=== PATIENT | male | born 1940 | race Caucasian/White ===

== ENCOUNTER → 2016-09-17 | Outpatient (CLI) | payer OTHER ==
[2015-10-30 17:10] VITALS: BP 119/66
[2016-09-17 21:28] LABS: BASOPHILS % (AUTO) 0.4 % (0.2-1.0); EOSINOPHILS # (AUTO) 0.2 x10^3/uL (0.0-0.2); EOSINOPHILS % (AUTO) 3.2 % (0.9-2.9); HEMATOCRIT 45.9 % (42.0-54.0); HEMOGLOBIN 15.3 g/dL (13.5-18.0); LYMPHOCYTES # (AUTO) 2.5 X10^3/uL (1.3-2.9); LYMPHOCYTES % (AUTO) 35.2 % (21.0-51.0); MEAN CORPUSCULAR HEMOGLOBIN 31.9 pg (27.0-34.0); MEAN CORPUSCULAR HGB CONC 33.4 g/dL (33.0-35.0); MEAN CORPUSCULAR VOLUME 95.5 fL (80.0-100.0); MEAN PLATELET VOLUME 8.7 fL (7.4-11.0); MONOCYTES # (AUTO) 0.9 x10^3/uL (0.3-0.8); MONOCYTES % (AUTO) 12.4 % (0.0-13.0); NEUTROPHILS # (AUTO) 3.4 x10^3/uL (2.2-4.8); NEUTROPHILS % (AUTO) 48.8 % (42.0-75.0); PLATELET COUNT 227 X10^3/uL (150.0-450.0); RED CELL DISTRIBUTION WIDTH 14.8 % (11.6-16.5); WHITE BLOOD COUNT 7.1 X10^3/uL (3.6-10.0)
[2016-09-17 21:38] LABS: ALANINE AMINOTRANSFERASE 24 Units/L (12-78); ALBUMIN 3.5 g/dL (3.4-5.0); ALKALINE PHOSPHATASE 49 Units/L (46-116); ASPARTATE AMINO TRANSFERASE 19 Units/L (15-37); BLOOD UREA NITROGEN 12 mg/dL (7-18); CALCIUM 8.6 mg/dL (8.5-10.1); CARBON DIOXIDE 26.5 mmol/L (21-32); CHLORIDE 109 mmol/L (98-107); CREATININE 1.28 mg/dL (0.70-1.30); GLUCOSE 90 mg/dL (65-99); SODIUM 144 mmol/L (136-145); TOTAL PROTEIN 6.4 g/dL (6.4-8.2); TSH (3RD GENERATION) 0.922 uIU/mL (0.358-3.74); eGFR BLACK RACES > 60 (>60); eGFR NON BLACK RACES 58 (>60)
== END ==
LOC: LAB 19:34
PROVIDERS: ATTEND Nurse Practitioner Family
DX: E11.9 Type 2 diabetes mellitus without complications (principal); I10 Essential (primary) hypertension; E03.8 Other specified hypothyroidism; E78.4 Other hyperlipidemia; Z79.899 Other long term (current) drug therapy
CPT/HCPCS: 36415; 80053; 84439; 84443; 85025

== ENCOUNTER 2018-01-03 13:28 | Inpatient (IN) ==
--- NOTE | 2018-01-03 15:10 | DR.H&P ---
H&P - History & Physical for Day of: H&P Date: 01/03/18 - Chief Complaint Chief Complaint: sob, dizziness - History of Present Illness History of Present Illness: 77 WM DIRECT ADMIT FROM DR PENN OFFICE WITH CO SOB, 'TIRES EASILY" PT HAS HX OF DVT AND PE. PT HAS BEEN COMPLIANT WITH PO ELIQUIS FOR ANTICOAGULANT THERAPY. PT HAD CTA OF CHEST THIS AM WITH NEW ACUTE PE. PT HAS PMH OF DM, OA, DVT/PE. PT ADMITTED TO ICU FOR IV HEPARIN THERAPY AND TREATMENT AND EVALUATION OF SOB. - Past Medical History Past Medical History: Arthritis, Diabetes, Dyslipidemia, GERD, Hypothyroidism, Kidney Stones Additional Medical History: HX PE, DVT - Past Surgical History Surgical History: Cholecystectomy, Joint Replacement - Family History Family Medical History: Coronary Artery Disease, Heart Failure, Hypertension - Social History Does patient currently use any type of tobacco product: No Have you used tobacco products in the last 12 months: No Type of Tobacco Use: None Does any household member use tobacco: No Alcohol Use: None Drug Use: None - Medications Home Medications: MS No Known Drug Allergy [No Known Drug Allergy] Allergy (Verified 01/14/15 20: 16) - Review of Systems Constitutional: Malaise Eyes: No Symptoms Reported ENT: No Symptoms Reported Respiratory: Shortness of Breath, SOB with Excertion Cardiovascular: No Symptoms Reported Gastrointestinal: No Symptoms Reported Genitourinary: No Symptoms Reported Neurological: Other (DIZZINESS) - Physical Exam Vital Signs: Temperature 98.8 F Pulse Rate [Apical] 80 Respiratory Rate 18 Blood Pressure [Left Arm] 125/66 Blood Pressure [Right Arm] 119/66 Blood Pressure 119/66 O2 Sat by Pulse Oximetry 96 Oriented: Normal Eyes: Normal Ear: Normal Nose: Normal Throat: Normal Respiratory: RLL Diminished, LLL Diminished Cardiovascular: Normal, Edema : Normal Palpation: Normal Tenderness: Normal Skin: Normal Musculoskeletal: Back:Lumbar Mood Description: Calm Affect: Anxious Speech Pattern: Clear, Appropriate - Assessment/Plan (1) Pulmonary embolism Status: Acute Plan: ADMIT ICU, IV HEPARIN DRIP PER PROTOCOL. ADMISSION LABS, CBC CMP CE AND UA. CXRQ AM, RESP CONSULT, EKG, CONTINUOUS CARDIAC MONITORING. BP CONTROL, AM LIPID LEVELS, BS CONTROL. US EXTREMITIES, HYPER COAG PANEL (2) Diabetes Status: Chronic (3) Neuropathy Status: Chronic (4) HTN (hypertension) Status: Chronic (5) Hypothyroidism Status: Chronic (6) Dizziness of unknown cause Status: Acute Plan: CAROTID ARTERY US. CT HEAD - Allergies Allergies/Adverse Reactions: Allergies Allergy/AdvReac Type Severity Reaction Status Date / Time MS No Known Drug Allergy Allergy Verified 01/14/15 20:16 [No Known Drug Allergy]
[2018-01-03 15:26] LABS: BASOPHILS % (AUTO) 0.4 % (0.2-1.0); EOSINOPHILS # (AUTO) 0.4 x10^3/uL (0.0-0.2); EOSINOPHILS % (AUTO) 5.2 % (0.9-2.9); HEMATOCRIT 44.9 % (42.0-54.0); HEMOGLOBIN 15.5 g/dL (13.5-18.0); LYMPHOCYTES # (AUTO) 2.4 X10^3/uL (1.3-2.9); LYMPHOCYTES % (AUTO) 34.1 % (21.0-51.0); MEAN CORPUSCULAR HEMOGLOBIN 33.5 pg (27.0-34.0); MEAN CORPUSCULAR HGB CONC 34.6 g/dL (33.0-35.0); MEAN CORPUSCULAR VOLUME 96.8 fL (80.0-100.0); MEAN PLATELET VOLUME 7.8 fL (7.4-11.0); MONOCYTES # (AUTO) 0.8 x10^3/uL (0.3-0.8); MONOCYTES % (AUTO) 11.5 % (0.0-13.0); NEUTROPHILS # (AUTO) 3.5 x10^3/uL (2.2-4.8); NEUTROPHILS % (AUTO) 48.8 % (42.0-75.0); PLATELET COUNT 268 X10^3/uL (150.0-450.0); RED BLOOD COUNT 4.63 X10^6/uL (4.7-6.0); RED CELL DISTRIBUTION WIDTH 14.1 % (11.6-16.5); WHITE BLOOD COUNT 7.2 X10^3/uL (3.6-10.0)
[2018-01-03 15:36] LABS: ALANINE AMINOTRANSFERASE 25 Units/L (12-78); ALBUMIN 3.4 g/dL (3.4-5.0); ALKALINE PHOSPHATASE 53 Units/L (46-116); ASPARTATE AMINO TRANSFERASE 16 Units/L (15-37); BLOOD UREA NITROGEN 18 mg/dL (7-18); CALCIUM 8.9 mg/dL (8.5-10.1); CHLORIDE 106 mmol/L (98-107); COR NA(FOR HYPERGLY) 143 mmol/L (136-145); CREATININE 1.41 mg/dL (0.70-1.30); MAGNESIUM 1.9 mg/dL (1.7-2.9); SODIUM 143 mmol/L (136-145); TOTAL PROTEIN 6.9 g/dL (6.4-8.2); eGFR NON BLACK RACES 52 (>60)
[2018-01-03] MEDS ORDERED: HEPARIN SODIUM INJ 5000 UNITS ONE (15:44)
[2018-01-03 15:46] LABS: CREATINE KINASE 89 Units/L (39-308); TROPONIN I < 0.02 ng/mL (0-1.5)
[2018-01-03] MEDS ORDERED: HEPARIN SODIUM INJ 5000 UNITS IVP ONE (16:00)
[2018-01-03 16:08] LABS: CKMB % 2.3 % (<4)
[2018-01-03 16:28] LABS: ERYTHROCYTE SEDIMENTATION RATE 17 MM/HOUR (0-15)
[2018-01-03] MEDS: HEPARIN SODIUM IN D5W 25,000 UNITS/500 ML BAG IV PRN (16:28)
--- NOTE | 2018-01-03 16:29 | CT ---
HISTORY: Dizziness and visual changes. Study: CT brain without contrast Comparison: None. Technique: Multiple axial images of the brain were obtained from the skull base to the vertex without administra tion of IV contrast. Dose reduction techniques including Automated Exposure Control (AEC) and adjust ment of mA and kV were utilized. Findings: Age-related cortical atrophy and chronic small vessel ischemic changes. No acute intraparenchymal hem orrhage or mass can be identified. No extra-axial fluid collections are seen. No alteration in the attenuation of the brain parenchyma can be identified to suggest acute or subacute ischemic change. The ventricular system is symmetric and nondilated. The osseous structures appear intact. Moderate m ucosal thickening of the ethmoidal air cells and sphenoid sinuses. Mild mucosal thickening of the fro ntal sinuses. The visualized maxillary sinuses and mastoid air cells are clear. IMPRESSION: 1. No obvious acute intracranial pathology. If clinically concerned for acute ischemia/infarction, MR I brain is more sensitive. 2. Sinus disease as above. Reported By:
--- NOTE | 2018-01-03 16:43 | VAS ---
HISTORY: History of pulmonary embolism Study: Venous Doppler Comparison: None TECHNIQUE: Multiple fernandez scale and color flow Doppler images of the deep venous system were obtained of the bilateral upper extremities FINDINGS: There is normal respiratory phasicity, compression and augmentation of the extremity veins without ev idence of acute DVT. IMPRESSION: 1. Negative for DVT. Reported By:
--- NOTE | 2018-01-03 16:45 | VAS ---
History: History of pulmonary emboli Study: Bilateral deep venous Doppler of the lower extremities Findings: The deep veins of both lower extremities are patent and show normal augmentation and compre ssion. Impression: No evidence for deep venous thrombosis of either lower extremity Reported By:
[2018-01-03 17:05] VITALS: BMI 33.0
[2018-01-03 19:09] LABS: BILIRUBIN,URINE NEGATIVE (NEGATIVE); BLOOD/HEMOGLOBIN,URINE 1+ (NEGATIVE); GLUCOSE, URINE NEGATIVE (NEGATIVE); KETONES,URINE NEGATIVE (NEGATIVE); LEUKOCYTE ESTERASE ,URINE NEGATIVE (NEGATIVE); NITRITES,URINE NEGATIVE (NEGATIVE); PROTEIN,URINE 1+ (NEGATIVE); UROBILINOGEN,URINE NORMAL (NORMAL)
[2018-01-03 19:10] LABS: COLOR,URINE YELLOW (YELLOW)
[2018-01-03 19:11] LABS: APPEARANCE,URINE SLIGHTLY HAZY (CLEAR)
[2018-01-03 19:15] LABS: BACTERIA,URINE NEGATIVE /HPF (NEGATIVE); RBC,URINE 0-2 /HPF (NONE SEEN); SQUAMOUS EPITHELIAL CELL,UR RARE /HPF (NEGATIVE)
[2018-01-03 21:12] LABS: CKMB % 2.2 % (<4); CREATINE KINASE 78 Units/L (39-308); CREATINE KINASE MB 1.7 ng/mL (0-4.0); TROPONIN I < 0.02 ng/mL (0-1.5)
[2018-01-04 04:04] LABS: CKMB % 2.1 % (<4); CREATINE KINASE 75 Units/L (39-308); CREATINE KINASE MB 1.6 ng/mL (0-4.0); TROPONIN I < 0.02 ng/mL (0-1.5)
[2018-01-04 06:27] LABS: BASOPHILS % (AUTO) 0.6 % (0.2-1.0); EOSINOPHILS # (AUTO) 0.5 x10^3/uL (0.0-0.2); EOSINOPHILS % (AUTO) 6.4 % (0.9-2.9); HEMATOCRIT 41.5 % (42.0-54.0); HEMOGLOBIN 14.4 g/dL (13.5-18.0); LYMPHOCYTES # (AUTO) 2.8 X10^3/uL (1.3-2.9); LYMPHOCYTES % (AUTO) 38.1 % (21.0-51.0); MEAN CORPUSCULAR HEMOGLOBIN 33.3 pg (27.0-34.0); MEAN CORPUSCULAR HGB CONC 34.8 g/dL (33.0-35.0); MEAN CORPUSCULAR VOLUME 95.8 fL (80.0-100.0); MONOCYTES # (AUTO) 0.8 x10^3/uL (0.3-0.8); MONOCYTES % (AUTO) 10.9 % (0.0-13.0); NEUTROPHILS # (AUTO) 3.2 x10^3/uL (2.2-4.8); PLATELET COUNT 229 X10^3/uL (150.0-450.0); RED BLOOD COUNT 4.33 X10^6/uL (4.7-6.0); RED CELL DISTRIBUTION WIDTH 14.1 % (11.6-16.5); WHITE BLOOD COUNT 7.3 X10^3/uL (3.6-10.0)
--- NOTE | 2018-01-04 06:51 | RAD ---
HISTORY: Pulmonary emboli, shortness of breath Study: Chest AP portable Comparison: CTA chest 01/03/2018 Findings: The heart is minimally enlarged. No congestive heart failure is noted. The aorta is calcified. The hi la are normal. The lung durbin are clear. IMPRESSION: Minimal cardiomegaly without congestive heart failure Lungs clear Reported By:
[2018-01-04] MEDS ORDERED: HEPARIN SODIUM INJ 5000 UNITS ONE (06:56)
[2018-01-04] MEDS ORDERED: HEPARIN SODIUM INJ 5000 UNITS IVP ONE ×2 (07:05→23:55)
[2018-01-04 07:08] LABS: ALANINE AMINOTRANSFERASE 24 Units/L (12-78); ALBUMIN 3.1 g/dL (3.4-5.0); ALKALINE PHOSPHATASE 44 Units/L (46-116); ASPARTATE AMINO TRANSFERASE 19 Units/L (15-37); BLOOD UREA NITROGEN 17 mg/dL (7-18); CALCIUM 8.7 mg/dL (8.5-10.1); CARBON DIOXIDE 28.5 mmol/L (21-32); CHLORIDE 106 mmol/L (98-107); CHOL/HDL RATIO 4.2 (0.0-5.0); COR CA(FOR HYPOALB) 9.4 mg/dL (8.5-10.1); COR NA(FOR HYPERGLY) 142 mmol/L (136-145); CREATININE 1.38 mg/dL (0.70-1.30); SODIUM 141 mmol/L (136-145); TOTAL PROTEIN 6.3 g/dL (6.4-8.2); eGFR NON BLACK RACES 53 (>60)
[2018-01-04] MEDS ORDERED: WELLBUTRIN IR (PLAIN) PO SCH (09:30)
[2018-01-04] MEDS ORDERED: HumuLIN R SUBCUT PRN (09:40)
[2018-01-04] MEDS: NEURONTIN CAP 100 MG PO SCH ×2 (10:06→20:24)
[2018-01-04] MEDS: MOBIC TAB 15 MG PO SCH (10:06)
[2018-01-04] MEDS: WELLBUTRIN XL 150 MG (DAILY) PO SCH (11:00)
[2018-01-04] MEDS: HEPARIN SODIUM IN D5W 25,000 UNITS/500 ML BAG IV PRN (12:16)
--- NOTE | 2018-01-04 16:18 | PCM.PROG ---
Progress Note - Progress Note for Day of Date of Exam: 01/04/18 - Subjective Subjective: 77 WM ADMISSION ON 01/03 WITH FATIGUE AND INCREASED SOB, NEW FINDING OF PULMONARY EMBOLI. PT IS CURRENTLY ON HEPARIN DRIP PROTOCOL, HYPER ANTI-COAG PANEL COLLECTED ON ADMISSION, RESULTS PENDING. REVIEWED LABS AND DIAGNOSTIC RESULTS WITH PT AND FAMILY CT HEAD WITHOUT ACUTE FINDINGS, EXTREMITY US NEGATIVE. PT DENIES ANY CP TODAY, CONTINUES WITH MILD FATIGUE - Past Medical Family Social History Past Med/Fam/Surg Hx: No changes since H&P Allergies: Allergies No Known Drug Allergies Allergy (Verified 01/04/18 08:46) - Review of Systems ROS: No change since H&P - Vital Signs and I&O's Vital Signs: Temperature 97.7 F Pulse Rate [Apical] 70 Respiratory Rate 15 Blood Pressure [Left Arm] 107/57 Blood Pressure [Right Arm] 119/66 Blood Pressure 119/66 O2 Sat by Pulse Oximetry 99 Intake and Output: Intake & Output 01/02/18 01/03/18 01/04/18 01/05/18 11:59 11:59 11:59 11:59 Intake Total 700 / 700 1666 / 1666 Output Total 200 / 200 Balance 700 / 700 1466 / 1466 - Physical Exam Oriented: Normal Eyes: Normal Ear: Normal Nose: Normal Throat: Normal Respiratory: Diminished Cardiovascular: Normal, Murmur, Edema : Normal Tenderness: Normal Skin: Normal Musculoskeletal: Back:Lumbar Mood Description: Calm Affect: Anxious Speech Pattern: Clear, Appropriate - Laboratory and Diagnostics Result Diagrams: 01/04/18 06:00 01/04/18 06:00 Labs: Laboratory WBC 7.3 X10^3/uL (3.6-10.0) 01/04/18 06:00 RBC 4.33 X10^6/uL (4.7-6.0) L 01/04/18 06:00 Hgb 14.4 g/dL (13.5-18.0) 01/04/18 06:00 Hct 41.5 % (42.0-54.0) L 01/04/18 06:00 MCV 95.8 fL (80.0-100.0) 01/04/18 06:00 MCH 33.3 pg (27.0-34.0) 01/04/18 06:00 MCHC 34.8 g/dL (33.0-35.0) 01/04/18 06:00 RDW 14.1 % (11.6-16.5) 01/04/18 06:00 Plt Count 229 X10^3/uL (150.0-450.0) 01/04/18 06:00 MPV 8.0 fL (7.4-11.0) 01/04/18 06:00 Neut % (Auto) 44.0 % (42.0-75.0) 01/04/18 06:00 Lymph % (Auto) 38.1 % (21.0-51.0) 01/04/18 06:00 [place] % (Auto) 10.9 % (0.0-13.0) 01/04/18 06:00 Eos % (Auto) 6.4 % (0.9-2.9) H 01/04/18 06:00 Baso % (Auto) 0.6 % (0.2-1.0) 01/04/18 06:00 Neut # (Auto) 3.2 x10^3/uL (2.2-4.8) 01/04/18 06:00 Lymph # (Auto) 2.8 X10^3/uL (1.3-2.9) 01/04/18 06:00 [place] # (Auto) 0.8 x10^3/uL (0.3-0.8) 01/04/18 06:00 Eos # (Auto) 0.5 x10^3/uL (0.0-0.2) H 01/04/18 06:00 Baso # (Auto) 0.0 X10^3/uL (0.0-0.1) 01/04/18 06:00 Absolute Nucleated RBC 0.1 /100WBC 01/04/18 06:00 ESR 17 MM/HOUR (0-15) H 01/03/18 14:52 INR Target Range - 01/03/18 14:52 INR 0.98 (0.8-1.3) 01/03/18 14:52 APTT 120.0 SECONDS (22.9-36.5) H 01/04/18 11:03 PTT Comment - 01/04/18 11:03 Sodium 141 mmol/L (136-145) 01/04/18 06:00 Corrected Sodium 142 mmol/L (136-145) 01/04/18 06:00 Potassium 4.5 mmol/L (3.5-5.1) 01/04/18 06:00 Chloride 106 mmol/L (98-107) 01/04/18 06:00 Carbon Dioxide 28.5 mmol/L (21-32) 01/04/18 06:00 BUN 17 mg/dL (7-18) 01/04/18 06:00 Creatinine 1.38 mg/dL (0.70-1.30) H 01/04/18 06:00 Est GFR (MDRD) Af Amer > 60 (>60) 01/04/18 06:00 Est GFR (MDRD) Non-Af 53 (>60) L 01/04/18 06:00 Glucose 129 mg/dL (65-99) H 01/04/18 06:00 POC Glucose (mg/dL) 107 mg/dL (65-99) H 01/04/18 11:06 Calcium 8.7 mg/dL (8.5-10.1) 01/04/18 06:00 Corrected Calcium 9.4 mg/dL (8.5-10.1) 01/04/18 06:00 Magnesium 1.9 mg/dL (1.7-2.9) 01/03/18 14:52 Total Bilirubin 0.20 mg/dL (0.2-1.0) 01/04/18 06:00 AST 19 Units/L (15-37) 01/04/18 06:00 ALT 24 Units/L (12-78) 01/04/18 06:00 Alkaline Phosphatase 44 Units/L (46-116) L 01/04/18 06:00 Creatine Kinase 75 Units/L (39-308) 01/04/18 03:31 CK-MB (CK-2) 1.6 ng/mL (0-4.0) 01/04/18 03:31 CK/CKMB % Calc 2.1 % (<4) 01/04/18 03:31 Troponin I < 0.02 ng/mL (0-1.5) 01/04/18 03:31 C-Reactive Protein 6.20 mg/L (0-3.0) H 01/03/18 14:52 Total Protein 6.3 g/dL (6.4-8.2) L 01/04/18 06:00 Albumin 3.1 g/dL (3.4-5.0) L 01/04/18 06:00 Globulin 3.2 g/dL (2.5-4.5) 01/04/18 06:00 Albumin/Globulin Ratio 1.0 Ratio (1.1-2.1) L 01/04/18 06:00 Triglycerides 108 mg/dL (0-150) 01/04/18 06:00 Cholesterol 198 mg/dL (0-200) 01/04/18 06:00 LDL Cholesterol, Calc 129 mg/dL (0-100) H 01/04/18 06:00 HDL Cholesterol 47 mg/dL (40-60) 01/04/18 06:00 Cholesterol/HDL Ratio 4.2 (0.0-5.0) 01/04/18 06:00 Specimen Type Random urine 01/03/18 18:41 Urine Color Yellow (YELLOW) 01/03/18 18:41 Urine Appearance Slightly hazy (CLEAR) 01/03/18 18:41 Urine pH 7.0 (5.0 - 8.0) 01/03/18 18:41 Ur Specific [place] 1.015 (1.000-1.030) 01/03/18 18:41 Urine Protein 1+ (NEGATIVE) 01/03/18 18:41 Urine Glucose (UA) Negative (NEGATIVE) 01/03/18 18:41 Urine Ketones Negative (NEGATIVE) 01/03/18 18:41 Urine Occult Blood 1+ (NEGATIVE) 01/03/18 18:41 Urine Nitrite Negative (NEGATIVE) 01/03/18 18:41 Urine Bilirubin Negative (NEGATIVE) 01/03/18 18:41 Urine Urobilinogen Normal (NORMAL) 01/03/18 18:41 Ur Leukocyte Esterase Negative (NEGATIVE) 01/03/18 18:41 Urine RBC 0-2 /HPF (NONE SEEN) 01/03/18 18:41 Urine WBC 0-2 /HPF (NONE SEEN) 01/03/18 18:41 Ur Squamous Epith Cells Rare /HPF (NEGATIVE) 01/03/18 18:41 Urine Bacteria Negative /HPF (NEGATIVE) 01/03/18 18:41 Ur Culture Indicated? No/not indicated 01/03/18 18:41 - Plan (1) Pulmonary embolism Status: Acute Plan: IV HEPARIN DRIP PER PROTOCOL. AM LABS, CBC CMP CE AND UA. CXR Q AM, RESP CARE PRN, EKG, CONTINUOUS CARDIAC MONITORING. BP CONTROL, AM LIPID LEVELS , BS CONTROL. US EXTREMITIES, HYPER COAG PANEL (2) Diabetes Status: Chronic (3) Neuropathy Status: Chronic (4) HTN (hypertension) Status: Chronic (5) Hypothyroidism Status: Chronic (6) Dizziness of unknown cause Status: Acute Plan: CAROTID ARTERY US. CT HEAD
[2018-01-04] MEDS: SYNTHROID 100 mcg TAB PO SCH (16:47)
[2018-01-04] MEDS: SNACK - Diabetic Appropriate PO SCH (20:22)
[2018-01-05 06:30] LABS: BASOPHILS % (AUTO) 0.3 % (0.2-1.0); EOSINOPHILS # (AUTO) 0.4 x10^3/uL (0.0-0.2); EOSINOPHILS % (AUTO) 5.9 % (0.9-2.9); HEMATOCRIT 42.5 % (42.0-54.0); HEMOGLOBIN 14.8 g/dL (13.5-18.0); LYMPHOCYTES # (AUTO) 2.4 X10^3/uL (1.3-2.9); LYMPHOCYTES % (AUTO) 35.4 % (21.0-51.0); MEAN CORPUSCULAR HEMOGLOBIN 33.5 pg (27.0-34.0); MEAN CORPUSCULAR HGB CONC 34.9 g/dL (33.0-35.0); MEAN CORPUSCULAR VOLUME 96.2 fL (80.0-100.0); MEAN PLATELET VOLUME 7.7 fL (7.4-11.0); MONOCYTES # (AUTO) 0.7 x10^3/uL (0.3-0.8); MONOCYTES % (AUTO) 10.4 % (0.0-13.0); NEUTROPHILS # (AUTO) 3.2 x10^3/uL (2.2-4.8); PLATELET COUNT 256 X10^3/uL (150.0-450.0); RED BLOOD COUNT 4.42 X10^6/uL (4.7-6.0); WHITE BLOOD COUNT 6.7 X10^3/uL (3.6-10.0)
[2018-01-05 07:03] LABS: ALANINE AMINOTRANSFERASE 24 Units/L (12-78); ALBUMIN 3.2 g/dL (3.4-5.0); ALKALINE PHOSPHATASE 46 Units/L (46-116); ASPARTATE AMINO TRANSFERASE 18 Units/L (15-37); BLOOD UREA NITROGEN 14 mg/dL (7-18); CALCIUM 8.6 mg/dL (8.5-10.1); CARBON DIOXIDE 29.4 mmol/L (21-32); CHLORIDE 105 mmol/L (98-107); COR CA(FOR HYPOALB) 9.2 mg/dL (8.5-10.1); COR NA(FOR HYPERGLY) 140 mmol/L (136-145); SODIUM 139 mmol/L (136-145); TOTAL PROTEIN 6.4 g/dL (6.4-8.2); eGFR NON BLACK RACES 52 (>60)
[2018-01-05] MEDS: MOBIC TAB 15 MG PO SCH (08:59)
[2018-01-05] MEDS: NEURONTIN CAP 100 MG PO SCH ×2 (08:59→20:12)
[2018-01-05] MEDS: WELLBUTRIN XL 150 MG (DAILY) PO SCH (09:00)
[2018-01-05] MEDS ORDERED: PHARMACY CONSULT - DOSE _____ XX SCH (10:00)
[2018-01-05] MEDS ORDERED: GLUCOPHAGE ONE ×2 (11:53→16:53)
[2018-01-05] MEDS: GLUCOPHAGE PO SCH ×2 (12:00→17:00)
[2018-01-05] MEDS: LOVENOX INJ 100 MG SYR SC SCH ×2 (12:34→20:13)
[2018-01-05] MEDS: SYNTHROID 100 mcg TAB PO SCH (16:44)
[2018-01-05] MEDS ORDERED: MAGNESIUM SULFATE 1 GRAM/100 mL PREMIX 1 GM/100 ML BAG IV PRN (19:02)
[2018-01-05] MEDS ORDERED: POTASSIUM CHLORIDE LIQ 20 MEQ UDC PO PRN (19:02)
[2018-01-05] MEDS ORDERED: K-RIDER 10 MEQ/NS 100 ML 10 MEQ/100 ML BAG IV PRN (19:02)
[2018-01-05] MEDS ORDERED: POTASSIUM CHL 40 MEQ/NS 0.45% 500 ML IV PRN (19:02)
[2018-01-05] MEDS ORDERED: POTASSIUM CHL 60 MEQ/NS 0.45% 500 ML IV PRN (19:02)
[2018-01-05] MEDS ORDERED: K-LYTE EFFERVESCENT PO PRN (19:02)
[2018-01-05] MEDS: SNACK - Diabetic Appropriate PO SCH (20:12)
[2018-01-06 06:22] LABS: BASOPHILS % (AUTO) 0.4 % (0.2-1.0); EOSINOPHILS # (AUTO) 0.4 x10^3/uL (0.0-0.2); EOSINOPHILS % (AUTO) 6.4 % (0.9-2.9); HEMATOCRIT 41.7 % (42.0-54.0); HEMOGLOBIN 14.3 g/dL (13.5-18.0); LYMPHOCYTES # (AUTO) 2.5 X10^3/uL (1.3-2.9); LYMPHOCYTES % (AUTO) 36.3 % (21.0-51.0); MEAN CORPUSCULAR HEMOGLOBIN 33.3 pg (27.0-34.0); MEAN CORPUSCULAR HGB CONC 34.4 g/dL (33.0-35.0); MEAN PLATELET VOLUME 7.9 fL (7.4-11.0); MONOCYTES # (AUTO) 0.7 x10^3/uL (0.3-0.8); MONOCYTES % (AUTO) 10.5 % (0.0-13.0); NEUTROPHILS # (AUTO) 3.2 x10^3/uL (2.2-4.8); NEUTROPHILS % (AUTO) 46.4 % (42.0-75.0); PLATELET COUNT 227 X10^3/uL (150.0-450.0); RED CELL DISTRIBUTION WIDTH 14.3 % (11.6-16.5)
[2018-01-06 06:36] LABS: CALCIUM 8.3 mg/dL (8.5-10.1); CARBON DIOXIDE 27.3 mmol/L (21-32); COR CA(FOR HYPOALB) 9.1 mg/dL (8.5-10.1); CREATININE 1.51 mg/dL (0.70-1.30); TOTAL PROTEIN 6.4 g/dL (6.4-8.2)
[2018-01-06] MEDS ORDERED: GLUCOPHAGE ONE (07:05)
[2018-01-06] MEDS: GLUCOPHAGE PO SCH (07:13)
[2018-01-06] MEDS: LOVENOX INJ 100 MG SYR SC SCH (08:41)
[2018-01-06] MEDS: WELLBUTRIN XL 150 MG (DAILY) PO SCH (08:41)
[2018-01-06] MEDS: NEURONTIN CAP 100 MG PO SCH (08:42)
[2018-01-06] MEDS: MOBIC TAB 15 MG PO SCH (08:42)
[2018-01-06] MEDS ORDERED: MILK OF MAGNESIA PO SCH (09:00)
[2018-01-06 09:35] LABS: ABG ALLEN TEST POS; ABG BASE EXCESS 3.5 mmol/L (-2.0-2.0); ABG HCO3 28.5 mmol/L (22-26)
[2018-01-06 14:30] VITALS: BP 117/65
[2018-01-06] MEDS ORDERED: COLACE CAP 100 MG PO SCH (21:00)
[2018-01-06 21:42] LABS: ANTI-NUCLEAR ANTIBODY TEST None Detected (None Detected); APC RESISTANCE 4.48 (>=2.00); PROTEIN C ACTIVITY 157 % (83-168); PROTHROMBIN G20210A Negative
[2018-01-07 09:26] LABS: ANTITHROMBIN III ACTIVITY 81 % (76-128)
== END 2018-01-06 13:30 | disposition home or self-care (01) | DRG 176 ==
LOC: ICU 14:11
PROVIDERS: ADMIT Internal Medicine; ATTEND Internal Medicine
DX: R42 Dizziness and giddiness; I25.10 Atherosclerotic heart disease of native coronary artery without angina pectoris; E78.2 Mixed hyperlipidemia; I26.99 Other pulmonary embolism without acute cor pulmonale; R06.02 Shortness of breath; Z79.01 Long term (current) use of anticoagulants; R79.1 Abnormal coagulation profile; K21.9 Gastro-esophageal reflux disease without esophagitis; Z86.711 Personal history of pulmonary embolism; E03.8 Other specified hypothyroidism; G62.89 Other specified polyneuropathies; E11.65 Type 2 diabetes mellitus with hyperglycemia
CPT/HCPCS: 36415; 36600; 70450; 71010; 71045; 80053; 80061; 81001; 81240; 82378; 82550; 82553; 82615; 82803; 83090; 83735; 84484; 85025; 85300; 85303; 85305; 85306; 85307; 85597; 85610; 85613; 85635; 85652; 85670; 85730; 85732; 86038; 86140; 86308; 93005; 93010; 93970; A4216; A4222; S0106; J1644; J1650

== ENCOUNTER 2019-09-06 13:55 | Observation (INO) ==
[2019-09-06 15:21] LABS: BASOPHILS # (AUTO) 0.1 X10^3/uL (0.0-0.1); BASOPHILS % (AUTO) 0.7 % (0.2-1.0); EOSINOPHILS # (AUTO) 0.1 x10^3/uL (0.0-0.2); EOSINOPHILS % (AUTO) 1.4 % (0.9-2.9); HEMATOCRIT 47.9 % (42.0-54.0); HEMOGLOBIN 16.5 g/dL (13.5-18.0); LYMPHOCYTES # (AUTO) 2.4 X10^3/uL (1.3-2.9); LYMPHOCYTES % (AUTO) 28.8 % (21.0-51.0); MEAN CORPUSCULAR HEMOGLOBIN 33.4 pg (27.0-34.0); MEAN CORPUSCULAR HGB CONC 34.4 g/dL (33.0-35.0); MEAN CORPUSCULAR VOLUME 97.1 fL (80.0-100.0); MONOCYTES # (AUTO) 0.8 x10^3/uL (0.3-0.8); MONOCYTES % (AUTO) 9.6 % (0.0-13.0); NEUTROPHILS # (AUTO) 4.9 x10^3/uL (2.2-4.8); NEUTROPHILS % (AUTO) 59.5 % (42.0-75.0); PLATELET COUNT 299 X10^3/uL (150.0-450.0); RED BLOOD COUNT 4.94 X10^6/uL (4.7-6.0); RED CELL DISTRIBUTION WIDTH 14.3 % (11.6-16.5); WHITE BLOOD COUNT 8.2 X10^3/uL (3.6-10.0)
[2019-09-06 15:29] LABS: ALANINE AMINOTRANSFERASE 26 Units/L (12-78); ALBUMIN 3.7 g/dL (3.4-5.0); ALKALINE PHOSPHATASE 52 Units/L (46-116); ASPARTATE AMINO TRANSFERASE 17 Units/L (15-37); BLOOD UREA NITROGEN 14 mg/dL (7-18); CALCIUM 9.5 mg/dL (8.5-10.1); CARBON DIOXIDE 32.6 mmol/L (21-32); CHLORIDE 98 mmol/L (98-107); SODIUM 136 mmol/L (136-145); TOTAL PROTEIN 7.2 g/dL (6.4-8.2); eGFR NON BLACK RACES 44 (>60)
[2019-09-06 15:53] LABS: CKMB % 2.8 % (<4); CREATINE KINASE 69 Units/L (39-308); CREATINE KINASE MB 1.9 ng/mL (0-4.0); TROPONIN I < 0.02 ng/mL (0-1.5)
--- NOTE | 2019-09-06 15:53 | DR.H&P ---
H&P - History & Physical for Day of: H&P Date: 09/06/19 - Chief Complaint Chief Complaint: PASSED OUT, DIZZINESS, WEAKNESS - History of Present Illness History of Present Illness: PT IS 78 WM DIRECT ADMIT FROM DR PENN OFFICE WITH CO SYNCOPE ON TUESDAY, WITNESS BY HIS FAMILY. PT WAS SEEN IN ER WITH NEGATIVE HEAD CT. PT FOLLOWED UP WITH DR EKEN AND HAS GRINDER SET UP OPERATOR JIG ON WITH ECHO AND CAROTID ORDERED. PT HAS PMH OF PE, CURRENTLY ON XARELTO. PTS FAMILY REPORTS MR ADAMS HAS BEEN WEAK AND EPISODES OF CONFUSION. PT BP RUNNING LOW AT HOME 90/60'S. PT HAD AORTIC VALVE DYSFUNCTION. PT ADMITTED FOR TREATMENT OF ACUTE ILLNESS - Past Medical History Past Medical History: Arthritis, Diabetes, Dyslipidemia, GERD, Hypothyroidism, Kidney Stones Additional Medical History: HX PE, DVT - Past Surgical History Surgical History: Cholecystectomy, Ortho Surgery - Family History Family Medical History: Diabetes Mellitus, Hypertension - Social History Does patient currently use any type of tobacco product: No Have you used tobacco products in the last 12 months: No Type of Tobacco Use: None Does any household member use tobacco: No Alcohol Use: None Drug Use: None Risks, benefits, and alternatives of opioids discussed: No Prescription drug monitoring program results: PDMP reviewed and no concerns identified - Medications Home Medications: No Known Drug Allergies Allergy (Verified 02/26/19 12:37) - Review of Systems Constitutional: Weakness Eyes: No Symptoms Reported ENT: No Symptoms Reported Respiratory: SOB with Excertion Cardiovascular: Orthopnea, Light Headedness Gastrointestinal: No Symptoms Reported Genitourinary: No Symptoms Reported Musculoskeletal: No Symptoms Reported Neurological: Weakness, Confusion (EPISODES OF CONFUSION PER FAMILY), Other (DIZZINESS) - Physical Exam Vital Signs: Blood Pressure [Left Arm] 132/67 Blood Pressure [Right Arm] 119/66 Blood Pressure 114/71 Oriented: Normal Eyes: Normal Ear: Normal Nose: Normal Throat: Normal Respiratory: RLL Diminished, LLL Diminished Cardiovascular: Murmur : Normal Palpation: Normal Tenderness: Normal Skin: Decreased Turgur Musculoskeletal: Normal Psychiatric: Anxiety Affect: Anxious Speech Pattern: Appropriate, Delayed - Assessment/Plan (1) Syncope Status: Acute Plan: ADMIT, CT HEAD ON ADMISSION. CAROTID ARTERY US, CTA LUNGS R/O PE DUE TO HX OF PE'S. ECHO, CONTINUOUS CARIDAC MONITORING. IV HYDRATION, ADMISSION LABS. STRICT I&OS, BS CONTROL, EKG ON ADMISSION, PRN SUPPLEMENTAL O2. VERIFY HOME MEDICATIONS (2) Aortic valve disease Status: Acute (3) SHELDON (dyspnea on exertion) Status: Acute (4) Diabetes Status: Chronic - Allergies Allergies/Adverse Reactions: Allergies Allergy/AdvReac Type Severity Reaction Status Date / Time No Known Drug Allergies Allergy Verified 02/26/19 12:37
--- NOTE | 2019-09-06 16:37 | RAD ---
HISTORYSOB, SYNCOPESTUDYCHEST x-ray, 1 VIEWCOMPARISONX-ray 09/04/2019FINDINGSThe trachea is midline. The cardiac silhouette is borderline enlarged on this AP radiograph. No pulmonary venous congestion is seen.Lungs appear clear. No pneumothorax or pleural effusion is seen.No acute bony abnormality is seen.IMPRESSIONBorderline cardiomegaly is likely accentuated due to AP technique. No evidence of pneumonia.Electronically signed by: Marcelo Espinal (Sep 06, 2019 16:36:01)
--- NOTE | 2019-09-06 16:43 | CT ---
HISTORYSyncope visual changesSTUDYHead CT noncontrast, Radiation dose reduction was achieved through individualized adjustment of kVP and/or mA, through adaptive statistical iterative reconstruction, and/or through automated tube current modulation.COMPARISONHead CT dated September 04, 2019 an older study of January 03, 2018.FINDINGSThe paranasal sinuses are clear. The orbits are normal. There are no sellar suprasellar masses. There is diffuse cortical atrophy most marked in the frontal region this cortical atrophy is unchanged from the older study of 2018. There are no extra-axial fluid collections or mass lesions. There is no parenchymal hemorrhage edema or mass effect. The ventricular system of the brain is normal for patient's age of 78 years. The brainstem and cerebellum are normal. Vascular calcifications are seen in the vertebral arteries and within the cavernous portion of both internal carotid arteries. On review of bone windows the paranasal sinuses are clear the mastoid air cells middle ear cavities and IAC's are normal. The bony calvarium is normal. Coronal and sagittal reformats are reviewed. No additional findings are noted.IMPRESSIONNo acute intracranial abnormalities. Moderate to marked frontoparietal cortical atrophy which is symmetric and unchanged from the older exam of January 03, 2018. Vascular arterial calcifications are seen in the cavernous portions of the internal carotid arteries and in the vertebral basilar system. Bone details normal with sinuses clear and bony calvarium normal. The sinus disease that was present in the sphenoid and ethmoid air cells previously in 2018 has resolved.Electronically signed by: LB TRAN (Sep 06, 2019 16:42:00)
--- NOTE | 2019-09-06 16:46 | CT ---
HISTORYSOB, SYNCOPE, HX PESTUDYCTA CHEST with IV contrastCOMPARISONCTA 01/03/2018TECHNIQUEMultiple axial images of the chest were obtained from the thoracic inlet to the upper abdomen after the administration of IV contrast. 3D reconstructions utilizing axial MIPS imaging was performed and reviewed. Dose reduction techniques including Automated Exposure Control (AEC) and adjustment of mA and kV were utilized.FINDINGSSubpleural stable nodular density in the right upper lobe measures approximately 5 millimeters. Probable mild scarring or atelectasis in the superior aspect of the right lower lobe and inferior aspect of the right upper lobe, unchanged. Likely mild atelectasis in the left lower lobe, associated with prominent cardiophrenic fat pads.However, there are likely mild increased ground-glass and interstitial densities in the lower lobes, left greater than right. These are very similar to prior study and could be associated with chronic interstitial lung disease. Within the superior aspect of the left lower lobe there is a new nodule that measures 6 millimeters in average axial dimension. A calcified granuloma is seen in the left upper lobe of the lungs. Likely mild bronchial wall thickening in the lower lobes.No pleural effusion or pneumothorax is seen. Heart and thoracic aorta are normal in size. Aorta is not well enhanced to evaluate further. Small likely reactive mediastinal and hilar lymph nodes are similar to prior study. Coronary artery vascular calcifications are seen. No pulmonary embolus is seen.IMPRESSIONNo pulmonary embolus is seen.Stable 5 millimeter right upper lobe lung nodule but there is a new 6 millimeter nodule in the left lower lobe. Short-term follow-up CT in 2-3 months time is recommended for this new nodule.Possible chronic interstitial lung disease changes in the lower lobes, similar to prior study. Possible bronchitis changes. No honeycombing is seen.Electronically signed by: Marcelo Espinal (Sep 06, 2019 16:45:17)
--- NOTE | 2019-09-06 16:48 | VAS ---
HISTORY:Syncope, visual disturbance, dizzinessStudy: Bilateral Carotid UltrasoundComparison:NoneTechnique: Multiple fernandez scale and color flow Doppler images of the right and left carotid arterial system were obtained. The vertebral arterial system was evaluated as well.Findings:Normal color flow Doppler is seen throughout the right and left carotid arterial system. There is calcified plaque present at the bilateral carotid bifurcations. Peak systolic velocity in the right ICA is 116 cm/sec. Peak systolic velocity in the left ICA is 95 cm/sec. The right ICA/CCA ratio is 2.23. The left ICA/CCA ratio is1.08. The right and left vertebral arteries demonstrate antegrade flowIMPRESSION:1. Calcified plaque at the bilateral carotid bifurcations. There is no evidence of significant stenosis by velocity criteria however the right ICA/CCA ratio is mildly elevated at 2.23 (normal less than 2.0) which suggests stenosis in the range of 50-69%. Findings could be further evaluated with CTA of the neck if clinically indicated.2. Normal antegrade flow in the vertebral arteries.3. Normal antegrade flow in the vertebral arteries.Electronically signed by: MARK MISHRA (Sep 06, 2019 16:47:04)
[2019-09-06 17:38] VITALS: BMI 27.6
[2019-09-06] MEDS: SYNTHROID 100 mcg TAB PO SCH (18:08)
[2019-09-06] MEDS: NS 1000 ML 1,000 ML IV SCH (20:00)
[2019-09-07 00:27] LABS: BILIRUBIN,URINE NEGATIVE (NEGATIVE); BLOOD/HEMOGLOBIN,URINE NEGATIVE (NEGATIVE); GLUCOSE, URINE NEGATIVE (NEGATIVE); KETONES,URINE NEGATIVE (NEGATIVE); LEUKOCYTE ESTERASE ,URINE NEGATIVE (NEGATIVE); NITRITES,URINE NEGATIVE (NEGATIVE); PROTEIN,URINE NEGATIVE (NEGATIVE); UROBILINOGEN,URINE NORMAL (NORMAL)
[2019-09-07 00:28] LABS: APPEARANCE,URINE CLEAR (CLEAR); COLOR,URINE YELLOW (YELLOW)
[2019-09-07] MEDS ORDERED: HumuLIN R SUBCUT PRN (04:29)
[2019-09-07 06:59] LABS: BASOPHILS % (AUTO) 0.2 % (0.2-1.0); EOSINOPHILS # (AUTO) 0.1 x10^3/uL (0.0-0.2); EOSINOPHILS % (AUTO) 1.8 % (0.9-2.9); HEMATOCRIT 45.2 % (42.0-54.0); HEMOGLOBIN 15.6 g/dL (13.5-18.0); LYMPHOCYTES # (AUTO) 2.3 X10^3/uL (1.3-2.9); LYMPHOCYTES % (AUTO) 33.1 % (21.0-51.0); MEAN CORPUSCULAR HEMOGLOBIN 33.2 pg (27.0-34.0); MEAN CORPUSCULAR HGB CONC 34.4 g/dL (33.0-35.0); MEAN CORPUSCULAR VOLUME 96.5 fL (80.0-100.0); MEAN PLATELET VOLUME 7.1 fL (7.4-11.0); MONOCYTES # (AUTO) 0.8 x10^3/uL (0.3-0.8); MONOCYTES % (AUTO) 11.4 % (0.0-13.0); NEUTROPHILS # (AUTO) 3.7 x10^3/uL (2.2-4.8); NEUTROPHILS % (AUTO) 53.5 % (42.0-75.0); PLATELET COUNT 264 X10^3/uL (150.0-450.0); RED BLOOD COUNT 4.69 X10^6/uL (4.7-6.0); RED CELL DISTRIBUTION WIDTH 14.7 % (11.6-16.5); WHITE BLOOD COUNT 6.9 X10^3/uL (3.6-10.0)
[2019-09-07 07:15] LABS: ALANINE AMINOTRANSFERASE 24 Units/L (12-78); ALBUMIN 3.3 g/dL (3.4-5.0); ALKALINE PHOSPHATASE 43 Units/L (46-116); ASPARTATE AMINO TRANSFERASE 15 Units/L (15-37); BLOOD UREA NITROGEN 15 mg/dL (7-18); CALCIUM 9.1 mg/dL (8.5-10.1); CARBON DIOXIDE 29.4 mmol/L (21-32); CHLORIDE 101 mmol/L (98-107); COR CA(FOR HYPOALB) 9.7 mg/dL (8.5-10.1); CREATININE 1.51 mg/dL (0.70-1.30); SODIUM 138 mmol/L (136-145); TOTAL PROTEIN 6.5 g/dL (6.4-8.2); eGFR NON BLACK RACES 47 (>60)
[2019-09-07 07:38] LABS: CKMB % 2.8 % (<4); CREATINE KINASE 68 Units/L (39-308); CREATINE KINASE MB 1.9 ng/mL (0-4.0); TROPONIN I < 0.02 ng/mL (0-1.5)
[2019-09-07] MEDS: SYNTHROID 100 mcg TAB PO SCH (08:29)
[2019-09-07] MEDS: NS 1000 ML 1,000 ML IV SCH (11:16)
[2019-09-07 11:36] VITALS: BP 116/64
[2019-09-07] MEDS ORDERED: XARELTO PO SCH (14:00)
[2019-09-07] MEDS ORDERED: SNACK - Diabetic Appropriate PO SCH (20:00)
== END 2019-09-07 14:20 | disposition home or self-care (01) ==
LOC: MED/SURG
PROVIDERS: ADMIT Internal Medicine; ATTEND Internal Medicine
DX: K21.9 Gastro-esophageal reflux disease without esophagitis; R91.8 Other nonspecific abnormal finding of lung field; Z79.899 Other long term (current) drug therapy; R55 Syncope and collapse; R53.1 Weakness; R42 Dizziness and giddiness; R94.4 Abnormal results of kidney function studies; E03.8 Other specified hypothyroidism; R06.09 Other forms of dyspnea; I35.8 Other nonrheumatic aortic valve disorders; E11.65 Type 2 diabetes mellitus with hyperglycemia

== ENCOUNTER 2024-01-14 19:13 | Inpatient (IN) ==
[2024-01-14 19:51] VITALS: BMI 31.1
--- NOTE | 2024-01-14 20:25 | EKG ---
Test Reason : chest pain Blood Pressure : */* mmHG Vent. Rate : 88 BPM Atrial Rate : 88 BPM P-R Int : 214 ms QRS Dur : 72 ms QT Int : 358 ms P-R-T Axes : 35 -41 17 degrees QTc Int : 433 ms Sinus rhythm with 1st degree AV block Left axis deviation Minimal voltage criteria for LVH, may be normal variant ( R in aVL ) Inferior infarct , age undetermined Abnormal ECG When compared with ECG of 04-JUL-2023 17:28, Criteria for Anterior infarct are no longer present No significant change was found Confirmed by Steve Concepcion ([id number]) on 01/16/2024 8:08:27 AM Referred By: Confirmed By: Steve Concepcion
[2024-01-14 20:26] LABS: BASOPHILS # (AUTO) 0.1 X10^3/uL (0.0-0.1); BASOPHILS % (AUTO) 0.8 % (0.2-1.0); EOSINOPHILS # (AUTO) 0.1 x10^3/uL (0.0-0.2); HEMOGLOBIN 13.9 g/dL (13.5-18.0); LYMPHOCYTES # (AUTO) 2.8 X10^3/uL (1.3-2.9); LYMPHOCYTES % (AUTO) 31.2 % (21.0-51.0); MEAN CORPUSCULAR HEMOGLOBIN 33.5 pg (27.0-34.0); MEAN CORPUSCULAR HGB CONC 33.1 g/dL (33.0-35.0); MEAN CORPUSCULAR VOLUME 101.2 fL (80.0-100.0); MEAN PLATELET VOLUME 7.5 fL (7.4-11.0); MONOCYTES # (AUTO) 1.2 x10^3/uL (0.3-0.8); MONOCYTES % (AUTO) 13.4 % (0.0-13.0); NEUTROPHILS # (AUTO) 4.9 x10^3/uL (2.2-4.8); NEUTROPHILS % (AUTO) 53.6 % (42.0-75.0); PLATELET COUNT 230 X10^3/uL (150.0-450.0); RED BLOOD COUNT 4.15 X10^6/uL (4.7-6.0); RED CELL DISTRIBUTION WIDTH 14.2 % (11.6-16.5); WHITE BLOOD COUNT 9.1 X10^3/uL (3.6-10.0)
[2024-01-14 20:44] LABS: ALANINE AMINOTRANSFERASE 15 Units/L (12-78); ALBUMIN 3.2 g/dL (3.4-5.0); ALKALINE PHOSPHATASE 80 Units/L (46-116); ASPARTATE AMINO TRANSFERASE 11 Units/L (15-37); BLOOD UREA NITROGEN 11 mg/dL (7-18); CALCIUM 8.9 mg/dL (8.5-10.1); CARBON DIOXIDE 30.1 mmol/L (21-32); CHLORIDE 100 mmol/L (98-107); COR CA(FOR HYPOALB) 9.5 mg/dL (8.5-10.1); CREATININE 1.51 mg/dL (0.70-1.30); GLUCOSE 100 mg/dL (65-99); POTASSIUM 4.1 mmol/L (3.5-5.1); SODIUM 139 mmol/L (136-145); TOTAL PROTEIN 6.5 g/dL (6.4-8.2); eGFR NON BLACK RACES 47 (>60)
--- NOTE | 2024-01-14 21:00 | DR.CP ---
HPI Time Seen Time Seen by Provider: 01/14/24 21:00 PCP Primary Care Physician: Georgiana Sarah HPI Comment HPI Comment: Patient is 83-year-old male in the emergency room with chest pain that started approximately around 5 PM today. Patient said pain is pressure- like precordial intermittent that is nonradiating. Pain is associated with shortness of breath and fatigue. Patient said pain is getting worse. Complaint Chief Complaint:: Pt complaing of chest pain in the epigastric area that started around 5 p.m this afternoon. He states that the pain feels like someone is putting pressure on him along with tightness, the pain comes and goes. He feels fatigued, and feels like he can't catch his breath. COVID-19 Coronavirus risk:travel/contact w/high risk person: No Has patient experienced Coronavirus symptoms: No Reviewed Nurses Notes Review: Yes Source History Provided: Patient Mode of Arrival Mode of Arrival: Ambulatory Timing Onset of Chief Complaint: 01/14/24 Location Chest Pain Radiation Location: None Associated Signs and Symptoms Associated Signs and Symptoms: Shortness of Breath PMH PMH Past Medical History: Yes Past Medical History: [place] Past Medical History Comment: Blood clots Past Surgical History: Yes Surgical History: Cholecystectomy Family History History of Family Medical Conditions: Yes Family Medical History: Cancer Social History Do you use any recreational Drugs:: No Travel Risk Coronavirus risk:travel/contact w/high risk person: No Has patient experienced Coronavirus symptoms: No Infectious screening Have you traveled outside the country in the last 6 months?: No Isolation: Standard ROS Review of Systems Constitutional: Fatigue; negative Fever Eyes: No Symptoms Reported ENTM: No Symptoms Reported; negative Nose Discharge or Nose Congestion Respiratoy: Short of Breath; negative Moist Cough or Wheezing Cardiovascular: No Symptoms Reported Gastrointestinal/Abdominal: No Symptoms Reported Genitourinary: No Symptoms Reported Neurological: No Symptoms Reported Musculoskeletal: No Symptoms Reported Integumentary: No Symptoms Reported; negative Rash or Juandice Hematologic/Lymphatic: No Symptoms Reported Endocrine: No Symptoms Reported; negative Increased Thirst or Increased Urine Psychiatric: No Symptoms Reported All Other Systems: Reviewed and Negative PE Vitals Vitals: Vital Signs Temperature 98.3 F Pulse Rate 74 Pulse Rate 68 Pulse Rate 72 Pulse Rate 71 Pulse Rate 70 Pulse Rate 75 Pulse Rate 73 Pulse Rate 74 Pulse Rate 73 Pulse Rate 73 Pulse Rate 70 Pulse Rate 72 Pulse Rate 72 Pulse Rate 81 Pulse Rate 71 Pulse Rate 73 Pulse Rate 75 Pulse Rate 71 Pulse Rate 73 Pulse Rate 74 Pulse Rate 72 Pulse Rate 76 Pulse Rate 77 Pulse Rate 76 Pulse Rate 79 Pulse Rate 81 Pulse Rate 82 Pulse Rate 83 Pulse Rate 85 Pulse Rate 88 Respiratory Rate 16 Respiratory Rate 19 Respiratory Rate 19 Respiratory Rate 14 Respiratory Rate 15 Respiratory Rate 12 Respiratory Rate 15 Respiratory Rate 19 Respiratory Rate 8 Respiratory Rate 8 Respiratory Rate 13 Respiratory Rate 13 Respiratory Rate 11 Respiratory Rate 22 Respiratory Rate 16 Respiratory Rate 30 Respiratory Rate 17 Respiratory Rate 14 Respiratory Rate 17 Respiratory Rate 14 Respiratory Rate 11 Respiratory Rate 15 Respiratory Rate 18 Respiratory Rate 19 Respiratory Rate 22 Respiratory Rate 11 Respiratory Rate 18 Respiratory Rate 18 Respiratory Rate 14 Respiratory Rate 14 Respiratory Rate 20 Blood Pressure 135/63 Blood Pressure 130/60 Blood Pressure 136/62 Blood Pressure 138/63 Blood Pressure 134/70 Blood Pressure 133/62 Blood Pressure 155/74 Blood Pressure 137/67 Blood Pressure 129/72 Blood Pressure 126/65 Blood Pressure 126/65 Blood Pressure 120/72 Blood Pressure 137/71 Blood Pressure 137/71 Blood Pressure 140/64 O2 Sat by Pulse Oximetry 99 O2 Sat by Pulse Oximetry 97 O2 Sat by Pulse Oximetry 97 O2 Sat by Pulse Oximetry 97 O2 Sat by Pulse Oximetry 98 O2 Sat by Pulse Oximetry 98 O2 Sat by Pulse Oximetry 98 O2 Sat by Pulse Oximetry 98 O2 Sat by Pulse Oximetry 99 O2 Sat by Pulse Oximetry 100 O2 Sat by Pulse Oximetry 99 O2 Sat by Pulse Oximetry 100 O2 Sat by Pulse Oximetry 100 O2 Sat by Pulse Oximetry 99 O2 Sat by Pulse Oximetry 99 O2 Sat by Pulse Oximetry 100 O2 Sat by Pulse Oximetry 99 O2 Sat by Pulse Oximetry 99 O2 Sat by Pulse Oximetry 99 O2 Sat by Pulse Oximetry 99 O2 Sat by Pulse Oximetry 98 O2 Sat by Pulse Oximetry 98 O2 Sat by Pulse Oximetry 97 O2 Sat by Pulse Oximetry 98 O2 Sat by Pulse Oximetry 97 O2 Sat by Pulse Oximetry 97 O2 Sat by Pulse Oximetry 98 O2 Sat by Pulse Oximetry 97 O2 Sat by Pulse Oximetry 96 O2 Sat by Pulse Oximetry 99 O2 Sat by Pulse Oximetry 99 General Limitations: No Limitations General Appearance: Alert and In No Apparent Distress Head Head Exam: Normal Inspection Eyes Eye exam: Normal Appearance; negative Scleral Icterus or Conjunctival Injection ENT ENT Exam: Normal Exam and Normal Oropharynx Chest Chest Inspection: Normal Inspection and Symmetric Chest Wall Rise; negative Tenderness Cardiovascular Cardiovascular Exam: Regular Rate, Normal Rhythm and Normal Heart Sounds; negative Systolic Murmur or Diastolic Murmur Abdominal Exam Abdominal Exam: Normal Inspection, Normal Bowel Sounds and Soft; negative Tenderness Extremities Extremities Exam: Tenderness, Normal Capillary Refill and Edema Back Back Exam: Normal Inspection; negative (R) CVA Tenderness or (L) CVA Tenderness Neurologic Neurological Exam: Alert and Oriented X3; negative Motor Sensory Deficit MDM Differential Diagnosis Differential Diagnosis: Angina, CHF, Myocardial Infarction, Pericarditis, Pleuritis, Pneumonia and Pneumothorax COURSE Treatment Treatment: See orders done while patient was in the emergency room. Labs EKG and x-ray discussed. Cardiac enzymes and EKG done twice 2 hours apart and was without acute findings. Patient will be admitted to hospital for further management. Consultation Consultation Comments: Discussed patient with Dr. Horta, he will admit patient. Education/Counseling Education/Counseling: Patient Educated On: Diagnosis ROR Labs Reviewed Laboratory Results Reviewed?: Yes 01/14/24 20:11 01/14/24 20:11 Laboratory: WBC 9.1 X10^3/uL (3.6-10.0) 01/14/24 20:11 RBC 4.15 X10^6/uL (4.7-6.0) L 01/14/24 20:11 Hgb 13.9 g/dL (13.5-18.0) 01/14/24 20:11 Hct 42.0 % (42.0-54.0) 01/14/24 20:11 MCV 101.2 fL (80.0-100.0) H 01/14/24 20:11 MCH 33.5 pg (27.0-34.0) 01/14/24 20:11 MCHC 33.1 g/dL (33.0-35.0) 01/14/24 20:11 RDW 14.2 % (11.6-16.5) 01/14/24 20:11 Plt Count 230 X10^3/uL (150.0-450.0) 01/14/24 20:11 MPV 7.5 fL (7.4-11.0) 01/14/24 20:11 Neut % (Auto) 53.6 % (42.0-75.0) 01/14/24 20:11 Lymph % (Auto) 31.2 % (21.0-51.0) 01/14/24 20:11 [place] % (Auto) 13.4 % (0.0-13.0) H 01/14/24 20:11 Eos % (Auto) 1.0 % (0.9-2.9) 01/14/24 20:11 Baso % (Auto) 0.8 % (0.2-1.0) 01/14/24 20:11 Neut # (Auto) 4.9 x10^3/uL (2.2-4.8) H 01/14/24 20:11 Lymph # (Auto) 2.8 X10^3/uL (1.3-2.9) 01/14/24 20:11 [place] # (Auto) 1.2 x10^3/uL (0.3-0.8) H 01/14/24 20:11 Eos # (Auto) 0.1 x10^3/uL (0.0-0.2) 01/14/24 20:11 Baso # (Auto) 0.1 X10^3/uL (0.0-0.1) 01/14/24 20:11 Absolute Nucleated RBC 0.0 /100WBC 01/14/24 20:11 D-Dimer 0.88 ug/ml (0.0-0.57) H 01/14/24 20:11 Sodium 139 mmol/L (136-145) 01/14/24 20:11 Corrected Sodium TNP 01/14/24 20:11 Potassium 4.1 mmol/L (3.5-5.1) 01/14/24 20:11 Chloride 100 mmol/L (98-107) 01/14/24 20:11 Carbon Dioxide 30.1 mmol/L (21-32) 01/14/24 20:11 BUN 11 mg/dL (7-18) 01/14/24 20:11 Creatinine 1.51 mg/dL (0.70-1.30) H 01/14/24 20:11 Est GFR (MDRD) Af Amer 57 (>60) L 01/14/24 20:11 Est GFR (MDRD) Non-Af 47 (>60) L 01/14/24 20:11 Glucose 100 mg/dL (65-99) H 01/14/24 20:11 Calcium 8.9 mg/dL (8.5-10.1) 01/14/24 20:11 Corrected Calcium 9.5 mg/dL (8.5-10.1) 01/14/24 20:11 Total Bilirubin 0.30 mg/dL (0.2-1.0) 01/14/24 20:11 AST 11 Units/L (15-37) L 01/14/24 20:11 ALT 15 Units/L (12-78) 01/14/24 20:11 Alkaline Phosphatase 80 Units/L (46-116) 01/14/24 20:11 Creatine Kinase 79 Units/L (39-308) 01/14/24 22:46 Troponin I High Sens 29.7 ng/L (4.0-60.0) 01/14/24 22:46 Total Protein 6.5 g/dL (6.4-8.2) 01/14/24 20:11 Albumin 3.2 g/dL (3.4-5.0) L 01/14/24 20:11 Globulin 3.3 g/dL (2.5-4.5) 01/14/24 20:11 Albumin/Globulin Ratio 1.0 Ratio (1.1-2.1) L 01/14/24 20:11 XRAY XRAY Interpreted by: Radiologist (Report noted.) EKG Rate: 88 [place]: LAD Rhythm: NSR Block: None and 1 Hypertrophy: LVH ST: Inf (Infarct age undetermined.) Opioid Opioid Risk Tool Age (Elder box if 16-45): No History of Preadolescent Sexual Abuse: No Total: 0 Total Score Risk Category: Low Risk Copyright: Olvin STEARNS predicting aberrant behaviors Discharge Plan Diagnosis Discharge Problem: Chest pain, rule out acute myocardial infarction Discharge Plan Patient Disposition: ADMITTED INPATIENT Condition: Stable
--- NOTE | 2024-01-14 22:34 | RAD ---
EXAM:CHEST, 1 VIEWHISTORY:CHEST PAIN/ PRESSURE SINCE 5PM ; HX- VT, SX- CHOLECYSTECTOMY, STENTS, VALVECOMPARISON:CTA chest from March 17, 2023TECHNIQUE:Chest radiographic imaging, AP portable projection, 2 imagesFINDINGS:No cardiomegaly.No focal airspace disease.No pleural effusion.No pneumothorax.No acute osseous abnormality.IMPRESSION:No imaging findings of acute cardiopulmonary disease.THIS IS AN ELECTRONICALLY VERIFIED FINAL REPORT01/14/2024 10:30 PM - Electronically signed by Tom Snyder MD
--- NOTE | 2024-01-15 01:07 | CT ---
EXAM: CTA CHEST WITH CONTRAST HISTORY: chest pain, elevated d-dimer; hx- diabeties, VT sx- stents, valve, ortho COMPARISON: 03/17/2023 TECHNIQUE: Axial images were acquired of the chest with IV contrast for a CT angiogram. Coronal and sagittal ubaldo ges were provided. All images were reviewed in a variety of windows and levels. 3D 8 mm thick MIPS im ages were provided. RADIATION REDUCTION TECHNIQUE: Automated exposure control, Adjustment of the mA and/or kV according t o patient size, or iterative reconstruction techniques were used. 8 mm thick axial MIPS images were p rovided. FINDINGS: THYROID GLAND: The thyroid gland is unremarkable. HEART AND VESSELS: The heart size is within normal limits. There is no evidence of a pericardial effu patric. The thoracic aorta is normal in size without evidence of aneurysm or dissection. The main pulmo nary artery size is within normal limits. There are no filling defects seen in the visualized pulmona ry arteries to suggest a pulmonary embolism. LYMPHNODES: There is no evidence of axillary, mediastinal, or hilar lymphadenopathy, AIRWAY: The trachea and mainstem bronchi are patent. No intraluminal lesions are seen. LUNGS: The lungs are clear bilaterally. There is no evidence of consolidation, pleural effusion, or p neumothorax. Mild bibasilar linear atelectasis. ESOPHAGUS: The esophagus is grossly unremarkable. BONES: The visualized bones demonstrate degenerative changes. There are no concerning lytic or blasti c lesions identified. UPPER ABDOMINAL STRUCTURES: The visualized portions of the upper abdominal structures demonstrate pos t cholecystectomy changes. IMPRESSION: Negative CT pulmonary angiogram; no evidence of pulmonary embolic disease. No active cardiopulmonary disease. THIS IS AN ELECTRONICALLY VERIFIED FINAL REPORT 01/15/2024 1:04 AM - Electronically signed by Tawanda Guadalupe MD
--- NOTE | 2024-01-15 02:19 | EKG ---
Test Reason : chest pain Blood Pressure : */* mmHG Vent. Rate : 72 BPM Atrial Rate : 72 BPM P-R Int : 208 ms QRS Dur : 74 ms QT Int : 394 ms P-R-T Axes : 53 -38 25 degrees QTc Int : 431 ms Normal sinus rhythm Left axis deviation Nonspecific ST abnormality Abnormal ECG When compared with ECG of 14-JAN-2024 20:22, (Unconfirmed) No significant change was found Confirmed by Albin Tejeda MD ([id number]) on 01/16/2024 6:55:02 AM Referred By: Confirmed By: Albin Tejeda MD
[2024-01-15 05:29] LABS: BASOPHILS % (AUTO) 0.2 % (0.2-1.0); EOSINOPHILS # (AUTO) 0.1 x10^3/uL (0.0-0.2); EOSINOPHILS % (AUTO) 0.9 % (0.9-2.9); HEMATOCRIT 41.3 % (42.0-54.0); HEMOGLOBIN 13.7 g/dL (13.5-18.0); LYMPHOCYTES # (AUTO) 2.5 X10^3/uL (1.3-2.9); LYMPHOCYTES % (AUTO) 29.9 % (21.0-51.0); MEAN CORPUSCULAR HEMOGLOBIN 33.4 pg (27.0-34.0); MEAN CORPUSCULAR HGB CONC 33.1 g/dL (33.0-35.0); MEAN CORPUSCULAR VOLUME 100.8 fL (80.0-100.0); MEAN PLATELET VOLUME 7.5 fL (7.4-11.0); MONOCYTES # (AUTO) 0.9 x10^3/uL (0.3-0.8); NEUTROPHILS # (AUTO) 4.8 x10^3/uL (2.2-4.8); PLATELET COUNT 224 X10^3/uL (150.0-450.0); RED BLOOD COUNT 4.09 X10^6/uL (4.7-6.0); WHITE BLOOD COUNT 8.4 X10^3/uL (3.6-10.0)
[2024-01-15 05:49] LABS: ALANINE AMINOTRANSFERASE 18 Units/L (12-78); ALKALINE PHOSPHATASE 77 Units/L (46-116); ASPARTATE AMINO TRANSFERASE 16 Units/L (15-37); BLOOD UREA NITROGEN 10 mg/dL (7-18); CALCIUM 8.9 mg/dL (8.5-10.1); CARBON DIOXIDE 31.9 mmol/L (21-32); CHLORIDE 100 mmol/L (98-107); COR CA(FOR HYPOALB) 9.7 mg/dL (8.5-10.1); CREATININE 1.38 mg/dL (0.70-1.30); GLUCOSE 99 mg/dL (65-99); MAGNESIUM 1.7 mg/dL (2.0-2.9); POTASSIUM 3.9 mmol/L (3.5-5.1); SODIUM 138 mmol/L (136-145); TOTAL PROTEIN 6.2 g/dL (6.4-8.2); eGFR NON BLACK RACES 52 (>60)
[2024-01-15] MEDS: NEURONTIN CAP 300 MG PO SCH (06:10)
[2024-01-15] MEDS: NS 1,000 ML IV 1,000 ML IV SCH (07:27)
[2024-01-15] MEDS ORDERED: CONSULT PHARMACY - POTASSIUM & MAGNESIUM XX SCH (08:00)
--- NOTE | 2024-01-15 09:00 | DR.H&P ---
H&P History & Physical for Day of: H&P Date: 01/14/24 Chief Complaint Chief Complaint: SOB History of Present Illness History of Present Illness: PT IS 83 WM, ER ADMISSION WITH CO HE BECAME VERY SOB "LIKE I WAS RUNNING AND COULDNT CATCH MY BREATH" PT HAS PMH OF CAD, HEART VALVE REPLACEMENT, [employer] WORK[employer] ANTICOAGULANT THERAPY AND DM. PT HAS BEEN IN AND OUT OF THE HOSPITAL WITH HIS SPOUSE RECENTLY AND COULD HAVE BEEN EXPOSED TO COVID BUT DENIES ANY CCC OR FEVER. PT REPORTS HE SEE DR FITZGERALD WITH [facility] AND HIS LAST STRESS TEST WAS LESS THAN ONE YEAR. PT ADMITTED FOR TREATMENT AND EVALUATION OF ACUTE ILLNESS. Past Medical History Past Medical History: ND Additional Medical History: HX PE, DVT Past Surgical History Surgical History: Cholecystectomy and Other Family History Family Medical History: Diabetes Mellitus, Cancer, ND and Hypertension Social History Does any household member use tobacco: No Alcohol Use: None Drug Use: None Medications Home Medications: Home Medications Medication Instructions Recorded Confirmed Type atorvastatin 80 mg tablet 80 mg PO QDAY 01/15/24 01/15/24 History bupropion HCl 75 mg tablet 75 mg PO QAM 01/15/24 01/15/24 History clopidogrel 75 mg tablet 75 mg PO QDAY 01/15/24 01/15/24 History gabapentin 300 mg capsule 300 mg PO TID 01/15/24 01/15/24 History levothyroxine 100 mcg tablet 100 mcg PO QDAY 01/15/24 01/15/24 History pantoprazole 40 mg tablet,delayed 40 mg PO QDAY 01/15/24 01/15/24 History release rivaroxaban 20 mg tablet (Xarelto) 20 mg PO QDAY 01/15/24 01/15/24 History sitagliptin phosphate 50 mg tablet 50 mg PO QDAY 01/15/24 01/15/24 History (Florentinouvia) Allergies Allergies Allergy/AdvReac Type Severity Reaction Status Date / Time No Known Drug Allergies Allergy Unknown Unverified 01/14/24 20:22 Labs 01/15/24 04:40 01/15/24 04:40 Labs: Laboratory WBC 8.4 X10^3/uL (3.6-10.0) 01/15/24 04:40 RBC 4.09 X10^6/uL (4.7-6.0) L 01/15/24 04:40 Hgb 13.7 g/dL (13.5-18.0) 01/15/24 04:40 Hct 41.3 % (42.0-54.0) L 01/15/24 04:40 MCV 100.8 fL (80.0-100.0) H 01/15/24 04:40 MCH 33.4 pg (27.0-34.0) 01/15/24 04:40 MCHC 33.1 g/dL (33.0-35.0) 01/15/24 04:40 RDW 14.0 % (11.6-16.5) 01/15/24 04:40 Plt Count 224 X10^3/uL (150.0-450.0) 01/15/24 04:40 MPV 7.5 fL (7.4-11.0) 01/15/24 04:40 Neut % (Auto) 58.0 % (42.0-75.0) 01/15/24 04:40 Lymph % (Auto) 29.9 % (21.0-51.0) 01/15/24 04:40 [place] % (Auto) 11.0 % (0.0-13.0) 01/15/24 04:40 Eos % (Auto) 0.9 % (0.9-2.9) 01/15/24 04:40 Baso % (Auto) 0.2 % (0.2-1.0) 01/15/24 04:40 Neut # (Auto) 4.8 x10^3/uL (2.2-4.8) 01/15/24 04:40 Lymph # (Auto) 2.5 X10^3/uL (1.3-2.9) 01/15/24 04:40 [place] # (Auto) 0.9 x10^3/uL (0.3-0.8) H 01/15/24 04:40 Eos # (Auto) 0.1 x10^3/uL (0.0-0.2) 01/15/24 04:40 Baso # (Auto) 0.0 X10^3/uL (0.0-0.1) 01/15/24 04:40 Absolute Nucleated RBC 0.0 /100WBC 01/15/24 04:40 PT 14.9 SECONDS (11.8-14.3) 01/15/24 04:40 INR Target Range - 01/15/24 04:40 INR 1.20 (0.8-1.3) 01/15/24 04:40 APTT 29.3 SECONDS (22.9-36.5) 01/15/24 04:40 PTT Comment - 01/15/24 04:40 D-Dimer 0.88 ug/ml (0.0-0.57) H 01/14/24 20:11 Sodium 138 mmol/L (136-145) 01/15/24 04:40 Corrected Sodium TNP 01/15/24 04:40 Potassium 3.9 mmol/L (3.5-5.1) 01/15/24 04:40 Chloride 100 mmol/L (98-107) 01/15/24 04:40 Carbon Dioxide 31.9 mmol/L (21-32) 01/15/24 04:40 BUN 10 mg/dL (7-18) 01/15/24 04:40 Creatinine 1.38 mg/dL (0.70-1.30) H 01/15/24 04:40 Est GFR (MDRD) Af Amer > 60 (>60) 01/15/24 04:40 Est GFR (MDRD) Non-Af 52 (>60) L 01/15/24 04:40 Glucose 99 mg/dL (65-99) 01/15/24 04:40 Calcium 8.9 mg/dL (8.5-10.1) 01/15/24 04:40 Corrected Calcium 9.7 mg/dL (8.5-10.1) 01/15/24 04:40 Magnesium 1.7 mg/dL (2.0-2.9) L 01/15/24 04:40 Total Bilirubin 0.40 mg/dL (0.2-1.0) 01/15/24 04:40 AST 16 Units/L (15-37) 01/15/24 04:40 ALT 18 Units/L (12-78) 01/15/24 04:40 Alkaline Phosphatase 77 Units/L (46-116) 01/15/24 04:40 Creatine Kinase 77 Units/L (39-308) 01/15/24 04:40 Troponin I High Sens 235.7 ng/L (4.0-60.0) H* 01/15/24 04:40 Total Protein 6.2 g/dL (6.4-8.2) L 01/15/24 04:40 Albumin 3.0 g/dL (3.4-5.0) L 01/15/24 04:40 Globulin 3.2 g/dL (2.5-4.5) 01/15/24 04:40 Albumin/Globulin Ratio 0.9 Ratio (1.1-2.1) L 01/15/24 04:40 SARS-CoV-2 (PCR) Negative (NEGATIVE) 01/15/24 06:21 Influenza Type A (PCR) Negative (NEGATIVE) 01/15/24 06:21 Influenza Type B (PCR) Negative (NEGATIVE) 01/15/24 06:21 RSV (PCR) Negative (NEGATIVE) 01/15/24 06:21 Review of Systems Constitutional: No Symptoms Reported Eyes: No Symptoms Reported ENT: No Symptoms Reported Respiratory: Shortness of Breath Cardiovascular: Chest Pain (TIGHTNESS) Gastrointestinal: No Symptoms Reported Genitourinary: No Symptoms Reported Musculoskeletal: No Symptoms Reported Skin: No Symptoms Reported Neurological: No Symptoms Reported Physical Exam Vital Signs: Vital Signs Temperature 97.7 F Pulse Rate [Left Radial] 98 Pulse Rate 74 Pulse Rate 68 Pulse Rate 72 Pulse Rate 71 Pulse Rate 70 Pulse Rate 75 Pulse Rate 73 Pulse Rate 74 Pulse Rate 73 Pulse Rate 73 Pulse Rate 70 Respiratory Rate 18 Respiratory Rate 16 Respiratory Rate 19 Respiratory Rate 19 Respiratory Rate 14 Respiratory Rate 15 Respiratory Rate 12 Respiratory Rate 15 Respiratory Rate 19 Respiratory Rate 8 Respiratory Rate 8 Respiratory Rate 13 Blood Pressure [Left Arm] 149/71 Blood Pressure 135/63 Blood Pressure 130/60 Blood Pressure 136/62 Blood Pressure 138/63 Blood Pressure 134/70 O2 Sat by Pulse Oximetry 99 O2 Sat by Pulse Oximetry 97 O2 Sat by Pulse Oximetry 97 O2 Sat by Pulse Oximetry 97 O2 Sat by Pulse Oximetry 98 O2 Sat by Pulse Oximetry 98 O2 Sat by Pulse Oximetry 98 O2 Sat by Pulse Oximetry 98 O2 Sat by Pulse Oximetry 99 O2 Sat by Pulse Oximetry 100 O2 Sat by Pulse Oximetry 99 Oriented: Normal Eyes: Normal Ear: Normal Nose: Normal Throat: Normal Respiratory: RLL Diminished and LLL Diminished Cardiovascular: Normal Auscultation: Bowel Sounds: Normal Tenderness: Normal Skin: Normal Musculoskeletal: Normal Psychiatric: Normal Mood Description: Calm Speech Pattern: Clear and Appropriate Assessment/Plan (1) Chest pain, rule out acute myocardial infarction: Narrative Support Text: ADMIT, SERIAL CE AND EKG CONTINUE ANTICOAGULANT THERAPY PLAVIX AND STATIN THERAPY BP CONTROL TELEMETRY, PRN PAIN CONTROL Status: Acute (2) Diabetes: Status: Chronic (3) Neuropathy: Status: Chronic (4) HTN (hypertension): Status: Chronic (5) Hyperlipidemia: Status: Chronic (6) Hypothyroidism: Status: Chronic
--- NOTE | 2024-01-15 09:20 | EKG ---
Test Reason : chest pain Blood Pressure : */* mmHG Vent. Rate : 82 BPM Atrial Rate : 82 BPM P-R Int : 168 ms QRS Dur : 68 ms QT Int : 380 ms P-R-T Axes : 31 -51 72 degrees QTc Int : 443 ms Normal sinus rhythm Left anterior fascicular block Left ventricular hypertrophy with repolarization abnormality ( R in aVL ) abnormal r wave progression Abnormal ECG When compared with ECG of 15-JAN-2024 02:15, (Unconfirmed) ST now depressed in Anterior leads Confirmed by Albin Tejeda MD ([id number]) on 01/16/2024 6:54:50 AM Referred By: Confirmed By: Albin Tejeda MD
[2024-01-15] MEDS: MAG-OX TAB PO SCH (09:30)
[2024-01-15] MEDS: LIPITOR TAB 80 MG PO SCH (09:31)
[2024-01-15] MEDS: SYNTHROID 100 mcg TAB PO SCH (09:31)
[2024-01-15] MEDS: JANUVIA PO SCH (09:32)
[2024-01-15] MEDS: WELLBUTRIN IR (PLAIN) PO SCH (09:32)
[2024-01-15] MEDS: PROTONIX TAB 40 MG PO SCH (09:33)
[2024-01-15] MEDS: PLAVIX PO SCH (09:33)
[2024-01-15] MEDS: ASPIRIN EC 81 MG PO ONE (09:39)
[2024-01-15 09:43] VITALS: TEMP 97.8
[2024-01-15 09:43] LABS: INR 1.21 (0.8-1.3)
[2024-01-15] MEDS: ASPIRIN 81 MG CHEWTAB PO ONE (10:03)
[2024-01-15] MEDS: OMNIPAQUE 350 mg/mL 100 mL BTL 100 ML ONE (10:03)
[2024-01-15 10:13] LABS: BILIRUBIN,URINE NEGATIVE (NEGATIVE); BLOOD/HEMOGLOBIN,URINE NEGATIVE (NEGATIVE); GLUCOSE, URINE NEGATIVE (NEGATIVE); KETONES,URINE NEGATIVE (NEGATIVE); LEUKOCYTE ESTERASE ,URINE NEGATIVE (NEGATIVE); NITRITES,URINE NEGATIVE (NEGATIVE); PROTEIN,URINE NEGATIVE (NEGATIVE); UROBILINOGEN,URINE NORMAL (NORMAL)
[2024-01-15 10:15] LABS: APPEARANCE,URINE CLEAR (CLEAR); COLOR,URINE PALE YELLOW (YELLOW)
[2024-01-15] MEDS ORDERED: HEPARIN SODIUM INJ 5000 UNITS ONE (10:17)
[2024-01-15] MEDS: HEPARIN SODIUM IN D5W 25,000 UNITS/500 ML BAG IV PRN (10:24)
[2024-01-15] MEDS: HEPARIN SODIUM INJ 5000 UNITS IVP ONE (10:27)
[2024-01-15 12:09] VITALS: BP 109/60
[2024-01-15 13:04] VITALS: RESP 18
--- NOTE | 2024-01-15 13:36 | EKG ---
Test Reason : CP Blood Pressure : */* mmHG Vent. Rate : 79 BPM Atrial Rate : 79 BPM P-R Int : 176 ms QRS Dur : 78 ms QT Int : 398 ms P-R-T Axes : 50 -46 39 degrees QTc Int : 456 ms Normal sinus rhythm Left anterior fascicular block Minimal voltage criteria for LVH, may be normal variant ( R in aVL ) Nonspecific ST abnormality Abnormal ECG When compared with ECG of 15-JAN-2024 09:02, (Unconfirmed) Criteria for Anterior infarct are no longer present T wave inversion no longer evident in Anterior leads Confirmed by Albin Tejeda MD ([id number]) on 01/16/2024 6:52:40 AM Referred By: Confirmed By: Alibn Tejeda MD
[2024-01-15 14:05] VITALS: PULSE 75; O2SAT 99
[2024-01-15] MEDS ORDERED: XARELTO PO SCH (21:00)
== END 2024-01-15 14:10 | disposition short-term general hospital (02) | DRG 313 ==
LOC: MED/SURG 19:16 → ER 19:16 → MED/SURG 01-15 03:58
PROVIDERS: ADMIT Internal Medicine; ATTEND Internal Medicine
DX: I10 Essential (primary) hypertension; R06.02 Shortness of breath; R79.1 Abnormal coagulation profile; G62.9 Polyneuropathy, unspecified; R07.89 Other chest pain; E03.8 Other specified hypothyroidism; Z20.822 Contact with and (suspected) exposure to COVID-19; R79.89 Other specified abnormal findings of blood chemistry; E11.65 Type 2 diabetes mellitus with hyperglycemia; E78.5 Hyperlipidemia, unspecified; R94.31 Abnormal electrocardiogram [ECG] [EKG]

== ENCOUNTER 2024-07-30 12:04 | Observation (INO) ==
--- NOTE | 2024-07-30 12:13 | EKG ---
Test Reason : chest pain Blood Pressure : */* mmHG Vent. Rate : 89 BPM Atrial Rate : 89 BPM P-R Int : 204 ms QRS Dur : 70 ms QT Int : 362 ms P-R-T Axes : 51 -39 43 degrees QTc Int : 440 ms Normal sinus rhythm Left axis deviation Septal infarct , age undetermined Abnormal ECG When compared with ECG of 15-JAN-2024 13:20, Septal infarct is now present Confirmed by Albin Tejeda MD ([id number]) on 07/30/2024 4:52:30 PM Referred By: Confirmed By: Albin Tejeda MD
--- NOTE | 2024-07-30 13:02 | DR.CP ---
HPI Time Seen Time Seen by Provider: 07/30/24 13:00 PCP Primary Care Physician: GERARDO FLORES Complaint Chief Complaint:: Patient states yesterday evening he started having mid sharp chest pain radiating down to lucien arms he took x2 nitro and relieved his pain up until 30 min ago he started back with mid sharp chest pain radiating down [place] arms along with sob. COVID-19 Coronavirus risk:travel/contact w/high risk person: No Has patient experienced Coronavirus symptoms: No Source History Provided: Patient Mode of Arrival Mode of Arrival: Ambulatory Timing Onset of Chief Complaint: 07/29/24 Location Chest Pain Radiation Location: Left Arm and Right Arm Associated Signs and Symptoms Associated Signs and Symptoms: Shortness of Breath PMH PMH Past Medical History: Yes Past Medical History: Dyslipidemia, Hypothyroidism and [place] Past Surgical History: Yes Surgical History: Angioplasty/Stents, Cholecystectomy and Other Past Surgical History Comment: knee, shoulder, valve replaced Family History History of Family Medical Conditions: Yes Family Medical History: Diabetes Mellitus, Cancer, [place] and Hypertension Social History Does patient currently use any type of tobacco product: No Have you used tobacco products in the last 12 months: No Type of Tobacco Use: None Does any household member use tobacco: No Alcohol Use: None Do you use any recreational Drugs:: No Lives With: Family Lives Where: Home Travel Risk Coronavirus risk:travel/contact w/high risk person: No Has patient experienced Coronavirus symptoms: No Infectious screening In the last 2 months have you had wt loss of >10#?: NO Have you had fever, night sweats or hemotysis?: No Have you traveled outside the country in the last 6 months?: No Isolation: Standard PE Vitals Vitals: Vital Signs Temperature 97.6 F Pulse Rate 90 Respiratory Rate 12 Blood Pressure 162/72 O2 Sat by Pulse Oximetry 99 ROR Labs Reviewed 07/30/24 13:23 07/30/24 13:23 Laboratory: WBC 7.9 X10^3/uL (3.6-10.0) 07/30/24 13:23 RBC 3.99 X10^6/uL (4.7-6.0) L 07/30/24 13:23 Hgb 12.3 g/dL (13.5-18.0) L 07/30/24 13:23 Hct 37.0 % (42.0-54.0) L 07/30/24 13:23 MCV 92.7 fL (80.0-100.0) 07/30/24 13:23 MCH 30.9 pg (27.0-34.0) 07/30/24 13:23 MCHC 33.4 g/dL (33.0-35.0) 07/30/24 13:23 RDW 15.3 % (11.6-16.5) 07/30/24 13:23 Plt Count 239 X10^3/uL (150.0-450.0) 07/30/24 13:23 MPV 7.2 fL (7.4-11.0) L 07/30/24 13:23 Neut % (Auto) 60.9 % (42.0-75.0) 07/30/24 13:23 Lymph % (Auto) 24.5 % (21.0-51.0) 07/30/24 13:23 [place] % (Auto) 12.0 % (0.0-13.0) 07/30/24 13:23 Eos % (Auto) 1.6 % (0.9-2.9) 07/30/24 13:23 Baso % (Auto) 1.0 % (0.2-1.0) 07/30/24 13:23 Neut # (Auto) 4.8 x10^3/uL (2.2-4.8) 07/30/24 13:23 Lymph # (Auto) 1.9 X10^3/uL (1.3-2.9) 07/30/24 13:23 [place] # (Auto) 0.9 x10^3/uL (0.3-0.8) H 07/30/24 13:23 Eos # (Auto) 0.1 x10^3/uL (0.0-0.2) 07/30/24 13:23 Baso # (Auto) 0.1 X10^3/uL (0.0-0.1) 07/30/24 13:23 Absolute Nucleated RBC 0.0 /100WBC 07/30/24 13:23 PT 27.5 SECONDS (11.8-14.3) 07/30/24 13:23 INR Target Range - 07/30/24 13:23 INR 2.66 (0.8-1.3) H 07/30/24 13:23 APTT 40.6 SECONDS (22.9-36.5) H 07/30/24 13:23 PTT Comment - 07/30/24 13:23 Sodium 138 mmol/L (136-145) 07/30/24 13:23 Corrected Sodium 140 mmol/L (136-145) 07/30/24 13:23 Potassium 3.9 mmol/L (3.5-5.1) 07/30/24 13:23 Chloride 102 mmol/L (98-107) 07/30/24 13:23 Carbon Dioxide 30.7 mmol/L (21-32) 07/30/24 13:23 BUN 13 mg/dL (7-18) 07/30/24 13:23 Creatinine 1.39 mg/dL (0.70-1.30) H 07/30/24 13:23 Est GFR (MDRD) Af Amer > 60 (>60) 07/30/24 13:23 Est GFR (MDRD) Non-Af 52 (>60) L 07/30/24 13:23 Glucose 167 mg/dL (65-99) H 07/30/24 13:23 Calcium 8.7 mg/dL (8.5-10.1) 07/30/24 13:23 Corrected Calcium 9.7 mg/dL (8.5-10.1) 07/30/24 13:23 Total Bilirubin 0.30 mg/dL (0.2-1.0) 07/30/24 13:23 AST 21 Units/L (15-37) 07/30/24 13:23 ALT 18 Units/L (12-78) 07/30/24 13:23 Alkaline Phosphatase 78 Units/L (46-116) 07/30/24 13:23 Creatine Kinase 102 Units/L (39-308) 07/30/24 13:23 Troponin I High Sens 57.5 ng/L (4.0-60.0) 07/30/24 15:21 B-Natriuretic Peptide 61.4 pg/mL (0-79) 07/30/24 13:23 Total Protein 6.1 g/dL (6.4-8.2) L 07/30/24 13:23 Albumin 2.8 g/dL (3.4-5.0) L 07/30/24 13:23 Globulin 3.3 g/dL (2.5-4.5) 07/30/24 13:23 Albumin/Globulin Ratio 0.8 Ratio (1.1-2.1) L 07/30/24 13:23 Opioid Opioid Risk Tool Age (Elder box if 16-45): No History of Preadolescent Sexual Abuse: No Total: 0 Total Score Risk Category: Low Risk Copyright: [facility] predicting aberrant behaviors Discharge Plan Discharge Plan Patient Disposition: HOME, SELF-CARE Condition: Stable Prescriptions: No Action atorvastatin 80 mg tablet 80 mg PO QDAY clopidogrel 75 mg tablet 75 mg PO QDAY levothyroxine 100 mcg tablet 100 mcg PO QDAY pantoprazole 40 mg tablet,delayed release (DR/EC) 40 mg PO QDAY bupropion HCl 75 mg tablet 75 mg PO QAM gabapentin 300 mg capsule 300 mg PO TID Januvia 50 mg tablet 50 mg PO QDAY Xarelto 20 mg tablet 20 mg PO QDAY famotidine 40 mg tablet 40 mg PO BID gabapentin 300 mg capsule 300 mg PO TID metoprolol tartrate 25 mg tablet 25 mg PO QDAY Health Concerns: Post Hospitalization: new medications and changes needed to prevent readmission or further decline. Pt educated and given instructions on all concerns. Plan of Treatment: Continue with present treatment and follow up plan. Pt is to keep follow up appointment as instructed and take medications as ordered. Orders to Discharge Patient Discharge Orders: Transfer (Routine); Ordered 07/30/24 Ordered By: KAILA CUNHA Follow ups/Referrals Follow ups/Referrals: GERARDO FLORES [Primary Care Provider] - 3 days Instructions Stand Alone Forms: Find Help Web Site, Post Hospital Follow Up Care
[2024-07-30 13:34] LABS: BASOPHILS # (AUTO) 0.1 X10^3/uL (0.0-0.1); EOSINOPHILS # (AUTO) 0.1 x10^3/uL (0.0-0.2); EOSINOPHILS % (AUTO) 1.6 % (0.9-2.9); HEMOGLOBIN 12.3 g/dL (13.5-18.0); LYMPHOCYTES # (AUTO) 1.9 X10^3/uL (1.3-2.9); LYMPHOCYTES % (AUTO) 24.5 % (21.0-51.0); MEAN CORPUSCULAR HEMOGLOBIN 30.9 pg (27.0-34.0); MEAN CORPUSCULAR HGB CONC 33.4 g/dL (33.0-35.0); MEAN CORPUSCULAR VOLUME 92.7 fL (80.0-100.0); MEAN PLATELET VOLUME 7.2 fL (7.4-11.0); MONOCYTES # (AUTO) 0.9 x10^3/uL (0.3-0.8); NEUTROPHILS # (AUTO) 4.8 x10^3/uL (2.2-4.8); NEUTROPHILS % (AUTO) 60.9 % (42.0-75.0); PLATELET COUNT 239 X10^3/uL (150.0-450.0); RED BLOOD COUNT 3.99 X10^6/uL (4.7-6.0); RED CELL DISTRIBUTION WIDTH 15.3 % (11.6-16.5); WHITE BLOOD COUNT 7.9 X10^3/uL (3.6-10.0)
[2024-07-30 13:38] LABS: INR 2.66 (0.8-1.3)
[2024-07-30 13:49] LABS: ALANINE AMINOTRANSFERASE 18 Units/L (12-78); ALBUMIN 2.8 g/dL (3.4-5.0); ALKALINE PHOSPHATASE 78 Units/L (46-116); ASPARTATE AMINO TRANSFERASE 21 Units/L (15-37); BLOOD UREA NITROGEN 13 mg/dL (7-18); CALCIUM 8.7 mg/dL (8.5-10.1); CARBON DIOXIDE 30.7 mmol/L (21-32); CHLORIDE 102 mmol/L (98-107); COR CA(FOR HYPOALB) 9.7 mg/dL (8.5-10.1); COR NA(FOR HYPERGLY) 140 mmol/L (136-145); CREATINE KINASE 102 Units/L (39-308); CREATININE 1.39 mg/dL (0.70-1.30); GLUCOSE 167 mg/dL (65-99); POTASSIUM 3.9 mmol/L (3.5-5.1); SODIUM 138 mmol/L (136-145); TOTAL PROTEIN 6.1 g/dL (6.4-8.2); eGFR NON BLACK RACES 52 (>60)
--- NOTE | 2024-07-30 17:02 | RAD ---
EXAM: CHEST, 1 VIEW HISTORY: chest pain; COMPARISON: 01/14/2024 TECHNIQUE: AP portable FINDINGS: Stable prominent cardiac silhouette, accentuated by AP technique. Low lung volumes. No focal consol idation, pleural effusion, or visible pneumothorax. Partially visualized reverse right glenohumeral prosthesis. IMPRESSION: Low lung volumes. No focal consolidation. THIS IS AN ELECTRONICALLY VERIFIED FINAL REPORT 07/30/2024 4:59 PM - Electronically signed by Marlon Go MD
--- NOTE | 2024-07-30 19:40 | EKG ---
Test Reason : repeat Blood Pressure : */* mmHG Vent. Rate : 80 BPM Atrial Rate : 80 BPM P-R Int : 214 ms QRS Dur : 74 ms QT Int : 382 ms P-R-T Axes : 58 -44 34 degrees QTc Int : 440 ms Sinus rhythm with 1st degree AV block with premature supraventricular complexes Left axis deviation Abnormal ECG When compared with ECG of 30-JUL-2024 12:09, premature supraventricular complexes are now present Criteria for Septal infarct are no longer present Confirmed by Albin Tejeda MD ([id number]) on 07/31/2024 7:58:26 AM Referred By: Confirmed By: Albin Tejeda MD
[2024-07-30 19:44] VITALS: BMI 31.4
[2024-07-30] MEDS ORDERED: HEPARIN SODIUM INJ 5000 UNITS ONE (21:20)
[2024-07-30 21:21] LABS: INR 1.91 (0.8-1.3)
[2024-07-30] MEDS: HEPARIN SODIUM IN D5W 25,000 UNITS/500 ML BAG IV PRN (21:35)
[2024-07-30] MEDS: HEPARIN SODIUM INJ 5000 UNITS IVP ONE (21:35)
--- NOTE | 2024-07-31 00:18 | EKG ---
Test Reason : repeat Blood Pressure : */* mmHG Vent. Rate : 75 BPM Atrial Rate : 75 BPM P-R Int : 204 ms QRS Dur : 72 ms QT Int : 378 ms P-R-T Axes : 61 -39 23 degrees QTc Int : 422 ms Normal sinus rhythm Left axis deviation Abnormal ECG When compared with ECG of 30-JUL-2024 19:22, (Unconfirmed) premature supraventricular complexes are no longer present Confirmed by Albin Tejeda MD ([id number]) on 07/31/2024 7:58:12 AM Referred By: Confirmed By: Albin Tejeda MD
--- NOTE | 2024-07-31 03:56 | EKG ---
Test Reason : repeat Blood Pressure : */* mmHG Vent. Rate : 79 BPM Atrial Rate : 79 BPM P-R Int : 196 ms QRS Dur : 72 ms QT Int : 386 ms P-R-T Axes : 52 -39 24 degrees QTc Int : 442 ms Sinus rhythm with pacs Left axis deviation Cannot rule out Anterior infarct , age undetermined Abnormal ECG When compared with ECG of 30-JUL-2024 23:53, (Unconfirmed) pacs new Confirmed by Albin Tejeda MD ([id number]) on 07/31/2024 8:01:31 AM Referred By: Confirmed By: Albin Tejeda MD
[2024-07-31 04:02] LABS: BASOPHILS # (AUTO) 0.1 X10^3/uL (0.0-0.1); BASOPHILS % (AUTO) 1.3 % (0.2-1.0); EOSINOPHILS # (AUTO) 0.2 x10^3/uL (0.0-0.2); EOSINOPHILS % (AUTO) 1.7 % (0.9-2.9); HEMATOCRIT 37.5 % (42.0-54.0); HEMOGLOBIN 12.5 g/dL (13.5-18.0); LYMPHOCYTES # (AUTO) 2.7 X10^3/uL (1.3-2.9); MEAN CORPUSCULAR HEMOGLOBIN 30.5 pg (27.0-34.0); MEAN CORPUSCULAR HGB CONC 33.3 g/dL (33.0-35.0); MEAN CORPUSCULAR VOLUME 91.7 fL (80.0-100.0); MEAN PLATELET VOLUME 7.6 fL (7.4-11.0); MONOCYTES % (AUTO) 11.3 % (0.0-13.0); NEUTROPHILS # (AUTO) 4.9 x10^3/uL (2.2-4.8); NEUTROPHILS % (AUTO) 55.7 % (42.0-75.0); PLATELET COUNT 257 X10^3/uL (150.0-450.0); RED BLOOD COUNT 4.09 X10^6/uL (4.7-6.0); RED CELL DISTRIBUTION WIDTH 15.9 % (11.6-16.5); WHITE BLOOD COUNT 8.9 X10^3/uL (3.6-10.0)
[2024-07-31 04:24] LABS: ALANINE AMINOTRANSFERASE 18 Units/L (12-78); ALBUMIN 2.8 g/dL (3.4-5.0); ALKALINE PHOSPHATASE 78 Units/L (46-116); ASPARTATE AMINO TRANSFERASE 18 Units/L (15-37); BLOOD UREA NITROGEN 11 mg/dL (7-18); CALCIUM 8.8 mg/dL (8.5-10.1); CARBON DIOXIDE 31.2 mmol/L (21-32); CHLORIDE 104 mmol/L (98-107); COR CA(FOR HYPOALB) 9.8 mg/dL (8.5-10.1); COR NA(FOR HYPERGLY) 141 mmol/L (136-145); CREATININE 1.34 mg/dL (0.70-1.30); GLUCOSE 121 mg/dL (65-99); MAGNESIUM 1.8 mg/dL (2.0-2.9); POTASSIUM 4.1 mmol/L (3.5-5.1); SODIUM 140 mmol/L (136-145); TOTAL PROTEIN 6.1 g/dL (6.4-8.2); eGFR NON BLACK RACES 54 (>60)
[2024-07-31 09:24] VITALS: TEMP 97.9
[2024-07-31 09:31] LABS: ABG ALLEN TEST POS; ABG BASE EXCESS 4.2 mmol/L (-2.0-2.0); ABG HCO3 28.4 mmol/L (22-26)
[2024-07-31] MEDS: HEPARIN SODIUM INJ 5000 UNITS IVP ONE (12:00)
--- NOTE | 2024-07-31 13:55 | DR.H&P ---
H&P History & Physical for Day of: H&P Date: 07/30/24 Chief Complaint Chief Complaint: CHEST PAIN History of Present Illness History of Present Illness: Patient states yesterday evening he started having mid sharp chest pain radiating down to [place] arms he took x2 nitro and relieved his pain up until 30 min ago he started back with mid sharp chest pain radiating down [place] arms along with sob. Past Medical History Past Medical History: Dyslipidemia, Hypothyroidism and [place] Additional Medical History: HX PE, DVT Past Surgical History Surgical History: Angioplasty/Stents, CABG/Valve Surgery, Cholecystectomy and Ortho Surgery Family History Family Medical History: Diabetes Mellitus, Cancer, [place], Coronary Artery Disease, Sudden Cardiac and Hypertension Social History Does patient currently use any type of tobacco product: No Have you used tobacco products in the last 12 months: No Type of Tobacco Use: None Does any household member use tobacco: No Alcohol Use: None Drug Use: None Medications Home Medications: Home Medications Medication Instructions Recorded Confirmed Type atorvastatin 80 mg tablet 80 mg PO QDAY 01/15/24 07/30/24 History bupropion HCl 75 mg tablet 75 mg PO QAM 01/15/24 07/30/24 History clopidogrel 75 mg tablet 75 mg PO QDAY 01/15/24 07/30/24 History gabapentin 300 mg capsule 300 mg PO TID 01/15/24 07/30/24 History levothyroxine 100 mcg tablet 100 mcg PO QDAY 01/15/24 07/30/24 History pantoprazole 40 mg tablet,delayed 40 mg PO QDAY 01/15/24 07/30/24 History release rivaroxaban 20 mg tablet (Xarelto) 20 mg PO QDAY 01/15/24 07/30/24 History sitagliptin phosphate 50 mg tablet 50 mg PO QDAY 01/15/24 07/30/24 History (Januvia) famotidine 40 mg tablet 40 mg PO BID 07/30/24 07/30/24 History gabapentin 300 mg capsule 300 mg PO TID 07/30/24 07/30/24 History metoprolol tartrate 25 mg tablet 25 mg PO QDAY 07/30/24 07/30/24 History Allergies Allergies Allergy/AdvReac Type Severity Reaction Status Date / Time No Known Drug Allergies Allergy Unknown Verified 07/30/24 12:27 Labs 07/31/24 03:40 07/31/24 03:40 Labs: Laboratory WBC 8.9 X10^3/uL (3.6-10.0) 07/31/24 03:40 RBC 4.09 X10^6/uL (4.7-6.0) L 07/31/24 03:40 Hgb 12.5 g/dL (13.5-18.0) L 07/31/24 03:40 Hct 37.5 % (42.0-54.0) L 07/31/24 03:40 MCV 91.7 fL (80.0-100.0) 07/31/24 03:40 MCH 30.5 pg (27.0-34.0) 07/31/24 03:40 MCHC 33.3 g/dL (33.0-35.0) 07/31/24 03:40 RDW 15.9 % (11.6-16.5) 07/31/24 03:40 Plt Count 257 X10^3/uL (150.0-450.0) 07/31/24 03:40 MPV 7.6 fL (7.4-11.0) 07/31/24 03:40 Neut % (Auto) 55.7 % (42.0-75.0) 07/31/24 03:40 Lymph % (Auto) 30.0 % (21.0-51.0) 07/31/24 03:40 [place] % (Auto) 11.3 % (0.0-13.0) 07/31/24 03:40 Eos % (Auto) 1.7 % (0.9-2.9) 07/31/24 03:40 Baso % (Auto) 1.3 % (0.2-1.0) H 07/31/24 03:40 Neut # (Auto) 4.9 x10^3/uL (2.2-4.8) H 07/31/24 03:40 Lymph # (Auto) 2.7 X10^3/uL (1.3-2.9) 07/31/24 03:40 [place] # (Auto) 1.0 x10^3/uL (0.3-0.8) H 07/31/24 03:40 Eos # (Auto) 0.2 x10^3/uL (0.0-0.2) 07/31/24 03:40 Baso # (Auto) 0.1 X10^3/uL (0.0-0.1) 07/31/24 03:40 Absolute Nucleated RBC 0.1 /100WBC 07/31/24 03:40 PT 21.3 SECONDS (11.8-14.3) 07/30/24 21:06 INR Target Range - 07/30/24 21:06 INR 1.91 (0.8-1.3) H 07/30/24 21:06 APTT 41.5 SECONDS (22.9-36.5) H 07/31/24 10:40 PTT Comment - 07/31/24 10:40 D-Dimer 0.61 ug/ml (0.0-0.57) H 07/31/24 08:23 Sample Site Lrad 07/31/24 09:25 ABG pH 7.460 (7.35-7.45) H 07/31/24 09:25 ABG pCO2 40.0 mmHg (35.0-45.0) 07/31/24 09:25 ABG pO2 75.0 mmHg (80.0-100.0) L 07/31/24 09:25 ABG HCO3 28.4 mmol/L (22-26) H 07/31/24 09:25 ABG O2 Saturation 96.0 % (90-100) 07/31/24 09:25 ABG Base Excess 4.2 mmol/L (-2.0-2.0) H 07/31/24 09:25 Edilberto Test Pos 07/31/24 09:25 A-a Gradient 25.0 mmHg 07/31/24 09:25 FiO2 21.0 07/31/24 09:25 Blood Gas Comments Annmarie well ms 07/31/24 09:25 Sodium 140 mmol/L (136-145) 07/31/24 03:40 Corrected Sodium 141 mmol/L (136-145) 07/31/24 03:40 Potassium 4.1 mmol/L (3.5-5.1) 07/31/24 03:40 Chloride 104 mmol/L (98-107) 07/31/24 03:40 Carbon Dioxide 31.2 mmol/L (21-32) 07/31/24 03:40 BUN 11 mg/dL (7-18) 07/31/24 03:40 Creatinine 1.34 mg/dL (0.70-1.30) H 07/31/24 03:40 Est GFR (MDRD) Af Amer > 60 (>60) 07/31/24 03:40 Est GFR (MDRD) Non-Af 54 (>60) L 07/31/24 03:40 Glucose 121 mg/dL (65-99) H 07/31/24 03:40 Calcium 8.8 mg/dL (8.5-10.1) 07/31/24 03:40 Corrected Calcium 9.8 mg/dL (8.5-10.1) 07/31/24 03:40 Magnesium 1.8 mg/dL (2.0-2.9) L 07/31/24 03:40 Total Bilirubin 0.40 mg/dL (0.2-1.0) 07/31/24 03:40 AST 18 Units/L (15-37) 07/31/24 03:40 ALT 18 Units/L (12-78) 07/31/24 03:40 Alkaline Phosphatase 78 Units/L (46-116) 07/31/24 03:40 Creatine Kinase 102 Units/L (39-308) 07/30/24 13:23 Troponin I High Sens 68.6 ng/L (4.0-60.0) H* 07/31/24 08:23 B-Natriuretic Peptide 61.4 pg/mL (0-79) 07/30/24 13:23 Total Protein 6.1 g/dL (6.4-8.2) L 07/31/24 03:40 Albumin 2.8 g/dL (3.4-5.0) L 07/31/24 03:40 Globulin 3.3 g/dL (2.5-4.5) 07/31/24 03:40 Albumin/Globulin Ratio 0.8 Ratio (1.1-2.1) L 07/31/24 03:40 Review of Systems Constitutional: Weakness Eyes: No Symptoms Reported ENT: No Symptoms Reported Respiratory: Shortness of Breath Cardiovascular: Chest Pain Gastrointestinal: No Symptoms Reported Genitourinary: No Symptoms Reported Musculoskeletal: No Symptoms Reported Skin: No Symptoms Reported Neurological: Weakness Physical Exam Vital Signs: Vital Signs Temperature 97.9 F Pulse Rate 83 Pulse Rate 86 Pulse Rate 84 Pulse Rate 97 Pulse Rate 91 Pulse Rate 95 Pulse Rate 95 Pulse Rate 87 Pulse Rate 98 Respiratory Rate 16 Respiratory Rate 20 Respiratory Rate 13 Respiratory Rate 16 Respiratory Rate 18 Respiratory Rate 14 Respiratory Rate 24 Respiratory Rate 19 Respiratory Rate 23 Blood Pressure 127/56 Blood Pressure 139/67 Blood Pressure 148/65 Blood Pressure 127/69 Blood Pressure 138/67 Blood Pressure 126/64 Blood Pressure 151/90 O2 Sat by Pulse Oximetry 97 O2 Sat by Pulse Oximetry 97 O2 Sat by Pulse Oximetry 98 O2 Sat by Pulse Oximetry 99 O2 Sat by Pulse Oximetry 96 O2 Sat by Pulse Oximetry 96 O2 Sat by Pulse Oximetry 97 O2 Sat by Pulse Oximetry 96 O2 Sat by Pulse Oximetry 99 Oriented: Normal Eyes: Normal Ear: Normal Nose: Normal Throat: Normal Respiratory: RLL Diminished and LLL Diminished Cardiovascular: Normal : Normal Auscultation: Bowel Sounds: Normal Palpation: Normal Tenderness: Normal Skin: Normal Musculoskeletal: Normal Psychiatric: Anxiety Mood Description: Anxious Affect: Anxious Speech Pattern: Clear and Appropriate Assessment/Plan (1) Chest pain, rule out acute myocardial infarction: Status: Acute Plan: ADMIT, SERIAL CE AND EKG BP CONTROL, BS CONTROL VERIFY HOME MEDICATION HEPARIN DRIP (2) Diabetes: Status: Chronic (3) HTN (hypertension): Status: Chronic (4) Neuropathy: Status: Chronic
[2024-07-31 14:13] VITALS: BP 128/63; PULSE 87; RESP 18; O2SAT 98
== END 2024-07-31 15:15 | disposition short-term general hospital (02) ==
LOC: MED/SURG 12:04 → ER 12:04 → MED/SURG 18:29 → ICU 21:04
PROVIDERS: ADMIT Internal Medicine; ATTEND Internal Medicine
DX: R79.1 Abnormal coagulation profile; R93.1 Abnormal findings on diagnostic imaging of heart and coronary circulation; E78.5 Hyperlipidemia, unspecified; G62.89 Other specified polyneuropathies; E03.8 Other specified hypothyroidism; R79.89 Other specified abnormal findings of blood chemistry; I25.2 Old myocardial infarction; Z91.81 History of falling; R07.89 Other chest pain; I10 Essential (primary) hypertension; I25.810 Atherosclerosis of coronary artery bypass graft(s) without angina pectoris; E11.65 Type 2 diabetes mellitus with hyperglycemia

== ENCOUNTER 2025-02-04 10:08 | Observation (INO) ==
[2025-02-04 11:57] VITALS: BMI 30.1
[2025-02-04 12:20] VITALS: BP 116/56
[2025-02-04 12:36] LABS: MEAN PLATELET VOLUME 7.3 fL (7.4-11.0); RED CELL DISTRIBUTION WIDTH 18.6 % (11.6-16.5)
[2025-02-04] MEDS ORDERED: READI-CAT 2 ONE (12:39)
[2025-02-04 12:47] LABS: COR CA(FOR HYPOALB) 9.6 mg/dL (8.5-10.1); CREATININE 1.19 mg/dL (0.70-1.30); eGFR NON BLACK RACES > 60 (>60)
[2025-02-04] MEDS: NS 1,000 ML IV 1,000 ML IV SCH (13:09)
[2025-02-04] MEDS: PROTONIX INJ 40 MG VIAL IVP SCH (13:09)
[2025-02-04] MEDS: FLAGYL IV PREMIX 500 MG BAG 500 MG/100 ML BAG IV SCH (13:09)
[2025-02-04] MEDS ORDERED: OMNIPAQUE 350 mg/mL 100 mL BTL 100 ML ONE (15:17)
[2025-02-04 15:52] VITALS: PULSE 69; RESP 18; TEMP 98; O2SAT 98
[2025-02-04] MEDS ORDERED: PHARMACY CONSULT XX SCH (16:00)
--- NOTE | 2025-02-04 16:15 | CT ---
EXAM: CT of the abdomen and pelvis with intravenous and oral contrast HISTORY: abdominal pain, fever colitis; COMPARISON: CT of the abdomen and pelvis without contrast May 14, 2020 TECHNIQUE: CT of the abdomen and pelvis with contrast FINDINGS: The lung bases are clear. Aortic valve prosthesis is visible. Coronary atherosclerotic calcifications are multifocal. The abdominal aorta tapers normally. No liver mass. Clips from prior cholecystectomy. Normal adrenal glands. Kidneys are not obstructed demonstrating small cysts. 8 mm calculus in the left renal pelvis, nonobstructing. Ureters taper normally. Normal spleen contours. The pancreas is noninflamed. The stomach is not obstructed. The appendix demonstrates wall thickening, inflammation and periappendiceal fat stranding. An appendicolith is noted. No formed collection/abscess or free air identified. Colonic diverticulosis. Normal urinary bladder. Advanced degenerative disc and facet changes of the lumbar spine. There is a moderate compression deformity of the T12 vertebral body without retropulsion which is new from the 2019 comparison but otherwise age indeterminate. IMPRESSION: Severe acute appendicitis. Surgical consultation advised. Additional findings as described. All CT scans at this facility use dose modulation, iterative reconstruction, and/or weight based dosing when appropriate to reduce radiation dose to as low as reasonably achievable. THIS IS AN ELECTRONICALLY VERIFIED FINAL REPORT 02/04/2025 4:12 PM - Electronically signed by Evert Vivas MD
[2025-02-04] MEDS: XARELTO PO SCH (16:34)
[2025-02-04] MEDS ORDERED: NS 250 ML IV 25 ML IV PRN (16:35)
[2025-02-04 17:13] LABS: BLOOD/HEMOGLOBIN,URINE NEGATIVE (NEGATIVE); LEUKOCYTE ESTERASE ,URINE NEGATIVE (NEGATIVE); NITRITES,URINE NEGATIVE (NEGATIVE)
[2025-02-04 17:18] LABS: APPEARANCE,URINE CLEAR (CLEAR); SQUAMOUS EPITHELIAL CELL,UR RARE /HPF (NEGATIVE)
[2025-02-04] MEDS: ZOSYN VIAL 3.375 GRAMS 3.375 G in NS 100 ML IV 100 ML IV SCH (17:29)
[2025-02-04] MEDS ORDERED: CIPRO IV 400 MG PREMIX* 400 MG/200 ML IV.SOLN. IV SCH (21:00)
[2025-02-04] MEDS ORDERED: FLAGYL IV PREMIX 500 MG BAG 500 MG/100 ML BAG IV SCH (21:00)
== END 2025-02-04 18:30 | disposition left against medical advice (07) ==
LOC: MED/SURG
PROVIDERS: ADMIT Internal Medicine; ATTEND Internal Medicine
DX: E78.5 Hyperlipidemia, unspecified; R50.9 Fever, unspecified; K35.80 Unspecified acute appendicitis; K57.32 Diverticulitis of large intestine without perforation or abscess without bleeding; Z95.2 Presence of prosthetic heart valve; R10.84 Generalized abdominal pain; I25.810 Atherosclerosis of coronary artery bypass graft(s) without angina pectoris; E87.1 Hypo-osmolality and hyponatremia; M19.90 Unspecified osteoarthritis, unspecified site; E11.65 Type 2 diabetes mellitus with hyperglycemia; Z95.5 Presence of coronary angioplasty implant and graft; E03.8 Other specified hypothyroidism; D72.828 Other elevated white blood cell count; Z53.29 Procedure and treatment not carried out because of patient's decision for other reasons; R79.82 Elevated C-reactive protein (CRP); R70.0 Elevated erythrocyte sedimentation rate

== ENCOUNTER 2025-03-01 13:20 | Inpatient (IN) ==
[2025-03-01] MEDS ORDERED: NORCO 5/325 MG TAB PO PRN (13:35)
[2025-03-01] MEDS: ZOFRAN ODT PO PRN (22:29)
[2025-03-01 23:11] VITALS: BMI 30.9
[2025-03-01] MEDS: ZOSYN VIAL 3.375 GRAMS 3.375 G in NS 100 ML IV 100 ML IV SCH (23:31)
[2025-03-01] MEDS: NS 250 ML IV 25 ML IV PRN (23:31)
[2025-03-01] MEDS: NYSTATIN CREAM TOP SCH (23:32)
[2025-03-01] MEDS: NEURONTIN CAP 300 MG PO SCH (23:33)
[2025-03-01] MEDS: PEPCID TAB 40 MG PO SCH (23:33)
[2025-03-02] MEDS: MIRALAX POWDER (1 DOSE 17 G) PO SCH ×2 (00:15→21:42)
[2025-03-02] MEDS: LIPITOR TAB 80 MG PO SCH (00:15)
[2025-03-02] MEDS: VOLTAREN 1 % GEL MULTI DOSE TUBE TOP SCH ×2 (00:15→13:55)
[2025-03-02] MEDS: SNACK - Diabetic Appropriate PO SCH (00:15)
[2025-03-02] MEDS: XARELTO PO SCH (00:16)
[2025-03-02] MEDS: PROTONIX TAB 40 MG PO SCH (08:46)
[2025-03-02] MEDS: JANUVIA PO SCH (08:47)
[2025-03-02] MEDS: COLACE CAP 100 MG PO SCH ×2 (08:48→12:41)
[2025-03-02] MEDS: TOPROL XL PO SCH (08:48)
[2025-03-02] MEDS: PLAVIX PO SCH (08:48)
[2025-03-02] MEDS: VITAMIN D3 125 mcg (5,000 UNITS) PO SCH (08:49)
[2025-03-02] MEDS: CLARITIN PO SCH (08:49)
[2025-03-02] MEDS: FLONASE NASAL SPRAY ENOSTRIL SCH (08:50)
[2025-03-02] MEDS ORDERED: PEPCID TAB 40 MG PO SCH (09:00)
[2025-03-02] MEDS ORDERED: NORCO 5/325 MG TAB PO PRN (11:25)
[2025-03-02] MEDS ORDERED: ZOFRAN TAB 4 MG PO PRN (11:25)
[2025-03-02] MEDS ORDERED: VITAMIN D3 125 mcg (5,000 UNITS) PO SCH (12:00)
[2025-03-02] MEDS ORDERED: LIPITOR TAB 80 MG PO SCH (12:00)
[2025-03-02] MEDS: PEPCID TAB 40 MG PO SCH (12:40)
[2025-03-02] MEDS ORDERED: VOLTAREN 1 % GEL MULTI DOSE TUBE TOP SCH ×2 (13:00→14:00)
[2025-03-02] MEDS: VIBRAMYCIN 100 MG in D5W 250 ML IV 250 ML IV SCH (13:53)
[2025-03-02] MEDS: NEURONTIN CAP 300 MG PO SCH (13:55)
[2025-03-02] MEDS ORDERED: MIRALAX POWDER (1 DOSE 17 G) PO SCH (21:00)
[2025-03-02] MEDS ORDERED: RIVAROXABAN 20 MG PO SCH (21:00)
[2025-03-02] MEDS ORDERED: XARELTO PO SCH (21:00)
[2025-03-02] MEDS: NYSTATIN CREAM TOP SCH (21:31)
[2025-03-03] MEDS: PLAVIX PO SCH (09:19)
[2025-03-03] MEDS: PROTONIX TAB 40 MG PO SCH (09:19)
[2025-03-03] MEDS: CLARITIN PO SCH (09:19)
[2025-03-03] MEDS: TOPROL XL PO SCH (09:31)
[2025-03-03 13:26] LABS: MEAN PLATELET VOLUME 7.2 fL (7.4-11.0); RED CELL DISTRIBUTION WIDTH 17.8 % (11.6-16.5)
[2025-03-03 13:39] LABS: COR CA(FOR HYPOALB) 10.3 mg/dL (8.5-10.1); CREATININE 0.96 mg/dL (0.70-1.30); eGFR NON BLACK RACES > 60 (>60)
[2025-03-03] MEDS: CONSULT PHARMACY - POTASSIUM & MAGNESIUM XX SCH (14:49)
[2025-03-03] MEDS: K-DUR TAB 20 MEQ PO SCH (16:05)
[2025-03-03] MEDS: MAGNESIUM SULFATE 1 GRAM/100 mL PREMIX 1 G/100 ML BAG IV SCH (16:05)
[2025-03-04 05:02] LABS: MEAN PLATELET VOLUME 7.3 fL (7.4-11.0); RED CELL DISTRIBUTION WIDTH 17.5 % (11.6-16.5)
[2025-03-04 05:15] LABS: COR CA(FOR HYPOALB) 10.4 mg/dL (8.5-10.1); COR NA(FOR HYPERGLY) 137 mmol/L (136-145); CREATININE 1.07 mg/dL (0.70-1.30); eGFR NON BLACK RACES > 60 (>60)
--- NOTE | 2025-03-04 05:52 | RAD ---
EXAMINATION: CHEST, PA/LAT ADULT HISTORY: hypoxia; . COMPARISON STUDY: Chest x-ray 11/14/2024 TECHNIQUE: Three views of the chest frontal and lateral projections FINDINGS: On the lateral view there is dense opacity obscuring posteroinferior lung field suspect pleural fluid. Mild elevation right hemidiaphragm. Mild cardiac silhouette enlargement. Normal pulmonary vascular pattern. Mild thoracic spondylosis. Partially imaged orthopedic hardware right shoulder. IMPRESSION: Probable pleural effusion. Recommend follow-up bilateral decubitus views of the chest or CT of the thorax. Cardiac silhouette enlargement. THIS IS AN ELECTRONICALLY VERIFIED FINAL REPORT 03/04/2025 5:48 AM - Electronically signed by Elsy Hoyos MD
[2025-03-04] MEDS ORDERED: CONSULT PHARMACY - POTASSIUM & MAGNESIUM XX SCH (06:00)
[2025-03-04] MEDS: K-DUR TAB 20 MEQ PO SCH ×2 (08:24→13:49)
[2025-03-04] MEDS: BUTT CREAM (COMPOUND) TOP PRN (11:15)
--- NOTE | 2025-03-04 13:47 | PCM.PROG ---
Progress Note Progress Note for Day of Date of Exam: 03/04/25 Subjective Subjective: PT IS 84 WM, ADMITTED TO [facility] FOR SWING BED THERAPY FOR IV ABTX AND PHYSICAL THERAPY. PT HAD PARTIAL COLECTOMY AND APPENDECTOMY AT [facility] AND THEN SENT TO [facility] FOR POST OPERATIVE ABDOMINAL ABSCESS LAST WEEK. Past Medical Family Social History Allergies: Allergies No Known Drug Allergies Allergy (Unknown, Verified 07/30/24 12:27) Onset Date: 12/13/2012 Vital Signs and I&O's Vital Signs: Vital Signs Temperature 97.6 F Pulse Rate [Right Brachial] 78 Pulse Rate 79 Respiratory Rate 18 Blood Pressure [Right Arm] 105/51 O2 Sat by Pulse Oximetry 96 O2 Sat by Pulse Oximetry 94 Intake and Output: Intake & Output 03/02/25 03/03/25 03/04/25 03/05/25 11:59 11:59 11:59 11:59 Intake Total 261 / 261 1365 / 1365 2049 / 2049 Output Total 325 / 325 990 / 990 Balance -64 / -64 1365 / 1365 1059 / 1059 Physical Exam Oriented: Normal Eyes: Normal Ear: Normal Nose: Normal Throat: Dry Respiratory: Diminished and Wheezes Cardiovascular: Normal and Edema Auscultation: Bowel Sounds: Decreased Palpation: Other (DIFFUSE ABDOMIAL DISTENTION) Tenderness: Diffuse Skin: Red and Tender (RIGHT MID AND LATERAL ABDOMEN) Musculoskeletal: Motor Deficit and Instability Mood Description: Depressed Affect: Depressed Speech Pattern: Clear and Appropriate Laboratory and Diagnostics 03/04/25 04:21 03/04/25 04:29 Labs: Laboratory WBC 10.1 X10^3/uL (3.6-10.0) H 03/04/25 04:21 RBC 3.39 X10^6/uL (4.7-6.0) L 03/04/25 04:21 Hgb 10.1 g/dL (13.5-18.0) L 03/04/25 04:21 Hct 30.0 % (42.0-54.0) L 03/04/25 04:21 MCV 88.7 fL (80.0-100.0) 03/04/25 04:21 MCH 29.7 pg (27.0-34.0) 03/04/25 04:21 MCHC 33.5 g/dL (33.0-35.0) 03/04/25 04:21 RDW 17.5 % (11.6-16.5) H 03/04/25 04:21 Plt Count 325 X10^3/uL (150.0-450.0) 03/04/25 04:21 MPV 7.3 fL (7.4-11.0) L 03/04/25 04:21 Neut % (Auto) 67.9 % (42.0-75.0) 03/04/25 04:21 Lymph % (Auto) 18.8 % (21.0-51.0) L 03/04/25 04:21 [place] % (Auto) 10.0 % (0.0-13.0) 03/04/25 04:21 Eos % (Auto) 3.0 % (0.9-2.9) H 03/04/25 04:21 Baso % (Auto) 0.3 % (0.2-1.0) 03/04/25 04:21 Neut # (Auto) 6.9 x10^3/uL (2.2-4.8) H 03/04/25 04:21 Lymph # (Auto) 1.9 X10^3/uL (1.3-2.9) 03/04/25 04:21 [place] # (Auto) 1.0 x10^3/uL (0.3-0.8) H 03/04/25 04:21 Eos # (Auto) 0.3 x10^3/uL (0.0-0.2) H 03/04/25 04:21 Baso # (Auto) 0.0 X10^3/uL (0.0-0.1) 03/04/25 04:21 Absolute Nucleated RBC 0.1 /100WBC 03/04/25 04:21 Sodium 136 mmol/L (136-145) 03/04/25 04:29 Corrected Sodium 137 mmol/L (136-145) 03/04/25 04:29 Potassium 3.4 mmol/L (3.5-5.1) L 03/04/25 04:29 Chloride 99 mmol/L (98-107) 03/04/25 04:29 Carbon Dioxide 31.5 mmol/L (21-32) 03/04/25 04:29 BUN 3 mg/dL (7-18) L 03/04/25 04:29 Creatinine 1.07 mg/dL (0.70-1.30) 03/04/25 04:29 Est GFR (MDRD) Af Amer > 60 (>60) 03/04/25 04:29 Est GFR (MDRD) Non-Af > 60 (>60) 03/04/25 04:29 Glucose 126 mg/dL (65-99) H 03/04/25 04:29 POC Glucose (mg/dL) 120 mg/dL (65-99) H 03/04/25 12:31 Calcium 8.3 mg/dL (8.5-10.1) L 03/04/25 04:29 Corrected Calcium 10.4 mg/dL (8.5-10.1) H 03/04/25 04:29 Magnesium 2.1 mg/dL (2.0-2.9) 03/04/25 04:29 Total Bilirubin 0.40 mg/dL (0.2-1.0) 03/04/25 04:29 AST 23 Units/L (15-37) 03/04/25 04:29 ALT 10 Units/L (12-78) L 03/04/25 04:29 Alkaline Phosphatase 81 Units/L (46-116) 03/04/25 04:29 Total Protein 5.2 g/dL (6.4-8.2) L 03/04/25 04:29 Albumin 1.4 g/dL (3.4-5.0) L 03/04/25 04:29 Globulin 3.8 g/dL (2.5-4.5) 03/04/25 04:29 Albumin/Globulin Ratio 0.4 Ratio (1.1-2.1) L 03/04/25 04:29 Plan (1) Abdominal abscess: Status: Acute Narrative Support Text: IV ATBX, ROUTINE LABS BP CONTROL, BS CONTROL PRN PAIN CONTROL PT/OT (2) Diabetes: Status: Chronic (3) HTN (hypertension): Status: Chronic (4) Hypothyroidism: Status: Chronic (5) CAD (coronary artery disease): Status: Acute
[2025-03-04] MEDS: LASIX IVP SCH (13:49)
[2025-03-04] MEDS: ALBUMIN HUMAN 25%- 100 ML 100 ML IV ONE (13:49)
--- NOTE | 2025-03-04 19:07 | PT/OTEVAL ---
PT/OT OBJECTIVES - HISTORY Prescription: PT Consult Diagnosis: Intra-abdominal Abscess Precautions: Fall Risk PMH: HTN, HLD, GERD, Hypothyroidism, DM2, CAD s/p Stents, Hx Aortic Valve Replacement, Thyroid Surgery, TKR, Shoulder Surgery Prior Level of Function: Independent Other: Per patient report- he resides at home with his in a single story home with ramp to enter. Prior to surgery- pt was independent with all mobility tasks without a device including driving. DME: Walker, Cane, Wheelchair. Reports he needs a bedside commode. History of Present Illness: Mr. Winslow is an 84 year old male who underwent a laparoscopic converted to an open partial colectomy for appendicitis. Following surgery, pt continued with abdominal pain and had a CT which showed a 7x8cm abscess in the right paracolic gutter. Pt was sent to [facility] for further management- he was found to be septic and underwent a CT guided drainage with KARTHIK drain placement on 02/23/2025 and started on IV antibiotics. Due to pt requiring continued IV treatment pt was transferred to [facility] for swing bed placement on the evening of 03/01/2025. - COGNITION Mental Status: Alert, Oriented, Name, Date, Purpose Communication Status: Verbal, Hard of Hearing Ability to Follow Directions: 2 Step - PAIN No signs of pain Pain Scale: No Pain - BED MOBILITY Rolling: Supervision - TRANSFERS Supine to Sit: Minimal Sit to Stand: Minimal Sit or Stand Pivot: Minimal - BALANCE Static Sitting: Good Standing: Fair Balance Comment: Fair- Dynamic Sitting: Good Standing: Poor - NEUROMOTOR/SENSATION Danie. Lower Ext Sensation: WFL Coordination: WFL Proprioception: WFL - HAND DOMINANCE Extremity Function: Hand Dominance: Right - ROM Bilateral LE ROM: WFL Muscle Tone: WFL - STRENGTH Bilateral LE Strength Number: 3 Other comment: 3+/5 - GAIT Pt. ambulates how many feet?: 50 Amount of Assistance Required: Minimal Type of Assistive Device: Rolling Walker Comments: LOB with turns - TREATMENT Date: 03/04/25 Time: 09:30 Treatment Type: Evaluation Treatment Provided: Gait, Therapeutic Activities - TOTAL TREATMENT TIME Total Time: 45 - POST ASSESSMENT Post Assessment Comment: Pt was found supine in bed in room and agreeable to participation in PT services. Pt able to provide history and PLOF information. Pt without complaints of pain. Pt able to transition from supine to sitting EOB with min assist. Once at EOB, pt with good sitting balance. Pt touch to min assist for functional transfers (EOB, commode and recliner chair) with cues for hand placement and facilitation of COM over COSME. Pt ambulated with FWW for 50ft with touch assist; however, on turns pt noted with LOB requiring min assist for recovery. Pt assisted to bathroom per his request- able to complete hygiene tasks with set up assist. Pt agreeable to sit in recliner following session and left with all needs met. Pt would benefit from continued participation in PT services to address remaining deficits and facilitate highest level of function and safe discharge planning. - EXIT DISPOSITION Exit Position: CHAIR Call light in reach: Yes Comments: All needs met PT/OT ASSESSMENT - PT Problem List: Decreased Bed Mobility, Decreased Transfers, Decreased Gait, Decreased Balance, Decreased LE Strength - PT GOALS Short Term Goals Days: 10 Mobility: Pt will perform bed mobility tasks with supervision Transfers: Pt will perform functional transfers with supervision Gait: Pt will ambulate 200ft with FWW with supervision Balance: Pt will increase static standing balance to good Sr. Manager Goals Days: 20 Mobility: Pt will perform bed mobility tasks with mod I Transfers: Pt will perform functional transfers with mod I Gait: Pt will ambulate 400ft with LRAD and mod I Balance: Pt will increase dynamic standing balance to fair+/good- ROM/Strength: Pt will increase BLE strength to 5/5 - PATIENT GOALS Patient/Family Goals: "I want to get better and get home" Goals Discussed with Patient/Family: Yes Rehabilitation Potential: Good to meet stated goals Justification for Potential: Facilitate highest level of function and safe discharge planning Weakness and Barriers: None - PLAN Suggested Treatment Plan: Bed Mobility Training, Therapeutic Activity, Gait Training, Neuro Re-education, Therapeutic Ex with HEP, Patient Education, Family Education - FREQUENCY AND DURATION PT: 5x per week x 20 days Expected Continuation of Care at Discharge: Home Health Anticipated Equipment Needs: Bedside commode
--- NOTE | 2025-03-05 06:55 | RAD ---
EXAMINATION: KUB HISTORY: sob, abdominal distention; . COMPARISON STUDY: KUB 11/14/2024 TECHNIQUE: 2 supine AP views of the abdomen and pelvis FINDINGS: Mild amount of bowel-gas and feces. Visualized soft tissue outlines and osseous structures appear intact. Mild lumbar spondylosis. Minimal to mild degenerative changes SI joints bilaterally, hip joints bilaterally, pubic symphysis. Surgical clips right upper abdomen. 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 IMPRESSION: Mild amount of bowel-gas and feces. THIS IS AN ELECTRONICALLY VERIFIED FINAL REPORT 03/05/2025 6:52 AM - Electronically signed by Elsy Hoyos MD
[2025-03-05 09:03] LABS: COR CA(FOR HYPOALB) 10.4 mg/dL (8.5-10.1); COR NA(FOR HYPERGLY) 139 mmol/L (136-145); CREATININE 1.17 mg/dL (0.70-1.30); eGFR NON BLACK RACES > 60 (>60)
[2025-03-06 06:32] LABS: MEAN PLATELET VOLUME 7.7 fL (7.4-11.0); RED CELL DISTRIBUTION WIDTH 17.9 % (11.6-16.5)
[2025-03-06 06:55] LABS: COR CA(FOR HYPOALB) 11.0 mg/dL (8.5-10.1); CREATININE 1.37 mg/dL (0.70-1.30); eGFR NON BLACK RACES 52 (>60)
[2025-03-06] MEDS ORDERED: CONSULT PHARMACY - POTASSIUM & MAGNESIUM XX SCH (08:00)
[2025-03-06] MEDS: MAG-OX TAB PO SCH (09:26)
--- NOTE | 2025-03-06 12:30 | RAD ---
EXAM: CHEST, 1 VIEW HISTORY: clancy, cough, hx chf; COMPARISON: No relevant prior studies were available for comparison at the time of interpretation. TECHNIQUE: CHEST, 1 VIEW FINDINGS: Chest: Lines and tubes: None Mediastinum: Borderline cardiomegaly. Pulmonary vessels: Pulmonary vasculature is prominent. Lung durbin: No suspicious airspace opacity. Pleura: No effusion. No pneumothorax. Bones and soft tissues: No acute osseous or soft tissue abnormality. IMPRESSION: 1. No acute cardiopulmonary abnormality THIS IS AN ELECTRONICALLY VERIFIED FINAL REPORT 03/06/2025 12:27 PM - Electronically signed by Sascha Nielson MD
[2025-03-06] MEDS: OMNIPAQUE 350 mg/mL 100 mL BTL 100 ML ONE (13:50)
[2025-03-06] MEDS: ZOFRAN INJ 4 MG VIAL IVP PRN (14:08)
--- NOTE | 2025-03-06 18:27 | CT ---
EXAM: ABDCMEN/PELVIS WITH CON HISTORY: hx of abcess to abdomen; COMPARISON: February 04, 2025 TECHNIQUE: ABDCMEN/PELVIS WITH CON Coronal and sagittal images were reconstructed. Dose reduction techniques included Automated Exposure Control (AEC) and adjustment of mA and kV. FINDINGS: Small right pleural effusion. Aortic valve postop changes noted. No free air noted in the abdomen. Spine degenerative changes noted. No suspicious bone lesion. Aorta is normal. Celiac artery and SMA are patent. ARANZA is patent. 1 cm right renal cyst. 1 cm left lower renal cyst. Left proximal ureter nonobstructive 7 mm stone present. Diverticulosis. No diverticulitis. Pelvis CT demonstrates normal bladder. No adenopathy. No ascites. No hemorrhage. Right lower quadrant postop changes noted. Lumbar spine degenerative changes In the right upper quadrant there is a 4.4 x 6 cm abscess with circumscribed margins air-fluid level image 34 series 3 which measures 11 cm in craniocaudal dimension extending to the right gallbladder surgical clips IMPRESSION: 1. New right upper quadrant abscess adjacent to the gallbladder clips. Recommend percutaneous drainage catheter placement. Correlate with surgeon no active contrast extravasation. 2. Right lower quadrant postop changes THIS IS AN ELECTRONICALLY VERIFIED FINAL REPORT 03/06/2025 6:24 PM - Electronically signed by Liliam Brown MD
[2025-03-07] MEDS: OMNIPAQUE 350 mg/mL 100 mL BTL IVP NR (06:08)
[2025-03-07] MEDS: READI-CAT 2 ONE (06:08)
[2025-03-07 08:55] LABS: MEAN PLATELET VOLUME 7.4 fL (7.4-11.0); RED CELL DISTRIBUTION WIDTH 18.0 % (11.6-16.5)
[2025-03-07 08:59] LABS: COR CA(FOR HYPOALB) 10.4 mg/dL (8.5-10.1); COR NA(FOR HYPERGLY) 136 mmol/L (136-145); CREATININE 1.40 mg/dL (0.70-1.30); eGFR NON BLACK RACES 51 (>60)
[2025-03-07] MEDS ORDERED: CONSULT PHARMACY - POTASSIUM & MAGNESIUM XX SCH (12:00)
[2025-03-07] MEDS: MAGNESIUM SULFATE 1 GRAM/100 mL PREMIX 1 G/100 ML BAG IV SCH (12:51)
--- NOTE | 2025-03-07 13:32 | PT/OTEVAL ---
PT/OT OBJECTIVES - HISTORY Diagnosis: Intra-abdominal Abscess Precautions: Fall risk, NPO PMH: HTN, HLD, GERD, Hypothyroidism, DM2, CAD s/p Stents, Hx Aortic Valve Replacement, Thyroid Surgery, TKR, Shoulder Surgery Other: Per patient report- pt lives with his in a 1 story home with ramp to enter. Prior to surgery- pt was independent with ADLs and IADLs, including driving. DME includes Walker, Cane, Wheelchair. Reports he needs a bedside commode. History of Present Illness: Pt is an 84 year old male who underwent a laparoscopic converted to an open partial colectomy for appendicitis. Following surgery, pt continued with abdominal pain and had a CT which showed a 7x8cm abscess in the right paracolic gutter. Pt was sent to [facility] for further management- he was found to be septic and underwent a CT guided drainage with KARTHIK drain placement on 02/23/2025 and started on IV antibiotics. Due to pt requiring continued IV treatment pt was transferred to [facility] for swing bed placement on the evening of 03/01/2025. - COGNITION Mental Status: Alert, Oriented, Name, Date, Purpose Communication Status: Verbal Ability to Follow Directions: 2 Step Affect: Calm - PAIN No signs of pain Pain Scale: No Pain - BED MOBILITY Rolling: Supervision Bridging: Supervision - TRANSFERS Supine to Sit: Supervision, Minimal Supine Comment: Touch A Sit to Stand: Not Tested Sit to Stand Comment: Became ill and needed to lay back down. Safety (requires cues for:): Hand Placement Precaution - ADL'S Feeding: N/A Feeding Comment: NPO - BALANCE Static Sitting: Good Standing: Not Tested Balance Comment: Not feeling well enough to stand up this date. Dynamic Sitting: Good Standing: Not Tested Balance Comment: Not feeling well enough to stand up this date. - NEUROMOTOR/SENSATION Danie. Lower Ext Sensation: WFL Coordination: WFL Proprioception: WFL Danie. Upper Ext Sensation: WFL Coordination: WFL Proprioception: WFL - ROM Bilateral UE ROM: WFL - STRENGTH Bilateral LE Strength Number: 3 Other comment: 3+/5 Bilateral UE Strength Number: 3 Other comment: 3+/5 - TREATMENT Date: 03/07/25 Time: 12:30 Treatment Type: Evaluation Treatment Provided: Therapeutic Activities - TOTAL TREATMENT TIME Total Time: 30 - POST ASSESSMENT Post Assessment Comment: Pt was seen for skilled OT to assess CLOF. Pt was agreeable to participate and able to provide PLOF and hx. Family present. Pt completed supine to sit with touch A and min VC for hand placement. Pt sat EOB and was going to change his gown, however became ill feeling and needed to lay back down. Pt given touch A to get back into the bed. Pt is currently NPO. Pt scooted up in the bed with supv A and bed tilted. Pt had all needs met and call light with in reach. Pt demonstrates deficits with ADLs and ADL functional mobility. Pt would benefit from skilled OT services to address ADL deficits to facilitate highest level of ADL function needed for safe d/c planning. - EXIT DISPOSITION Exit Position: BED Call light in reach: Yes PT/OT ASSESSMENT - OT Problem List: Decreased Mobility ADL's, Decreased Safety Aware, Decreased Dressing, Decreased Bathing, Decreased UE Strength - PT GOALS Short Term Goals Days: 10 Mobility: Pt will perform bed mobility tasks with supervision Transfers: Pt will perform functional transfers with supervision Gait: Pt will ambulate 200ft with FWW with supervision Balance: Pt will increase static standing balance to good Factory Maintenance Manager Goals Days: 20 Mobility: Pt will perform bed mobility tasks with mod I Transfers: Pt will perform functional transfers with mod I Gait: Pt will ambulate 400ft with LRAD and mod I Balance: Pt will increase dynamic standing balance to fair+/good- ROM/Strength: Pt will increase BLE strength to 5/5 - OT GOALS Factory Maintenance Manager Goals Days: 20 Mobility for ADL's: Pt will improve fucntional ADL transfers with set up A and LRAD Dressing: Pt will improve LB dressing with supv A Bathing: Pt will improve bathing to supv A Upper Ext. Strength/Use: Pt will improve MMT in BUE by 1 grade Short Term Goals Mobility for ADL's: Pt will improve fucntional ADL transfers with set up A and LRAD Dressing: Pt will improve UB dressing with supv A Bathing: Pt will improve bathing to min A Other: Pt will improve FAT to G - PATIENT GOALS Patient/Family Goals: To feel better and go back home. Goals Discussed with Patient/Family: Yes Rehabilitation Potential: Good to meet stated goals Justification for Potential: To facilitate highest level of ADL function needed for safe d/c planning. Weakness and Barriers: None - PLAN Suggested Treatment Plan: Therapeutic Activity, Self Care Training, Neuro Re- education, Therapeutic Ex with HEP, Patient Education - FREQUENCY AND DURATION OT: 5x a week x 20 days Expected Continuation of Care at Discharge: Home Health Anticipated Equipment Needs: BSC
[2025-03-07] MEDS ORDERED: NS 250 ML IV 250 ML IV ONE (14:15)
--- NOTE | 2025-03-07 14:18 | RAD ---
EXAM: CHEST, 1 VIEW HISTORY: CHF, SOB; COMPARISON: No relevant prior studies were available for comparison at the time of interpretation. TECHNIQUE: CHEST, 1 VIEW FINDINGS: Chest: Lines and tubes: None Mediastinum: Cardiac and mediastinal shadow is within normal limits for size and contour. Pulmonary vessels: No pulmonary vascular congestion. Lung durbin: No suspicious airspace opacity. Pleura: No effusion. No pneumothorax. Bones and soft tissues: No acute osseous or soft tissue abnormality. IMPRESSION: 1. No acute cardiopulmonary abnormality THIS IS AN ELECTRONICALLY VERIFIED FINAL REPORT 03/07/2025 2:15 PM - Electronically signed by Sascha Nielson MD
[2025-03-07 20:04] VITALS: BP 147/80; PULSE 81; RESP 16; TEMP 98.1; O2SAT 95
[2025-03-07] MEDS: PEPCID TAB 20 MG PO SCH (20:51)
[2025-03-08] MEDS ORDERED: MAG-OX TAB PO SCH (06:00)
== END 2025-03-07 21:25 | disposition short-term general hospital (02) | DRG 372 ==
LOC: MED/SURG 21:37
PROVIDERS: ADMIT Internal Medicine; ATTEND Internal Medicine
DX: K65.1 Peritoneal abscess; Z51.89 Encounter for other specified aftercare; R06.02 Shortness of breath; E11.65 Type 2 diabetes mellitus with hyperglycemia; L89.159 Pressure ulcer of sacral region, unspecified stage; Z86.718 Personal history of other venous thrombosis and embolism; I25.10 Atherosclerotic heart disease of native coronary artery without angina pectoris; Z98.890 Other specified postprocedural states; E83.51 Hypocalcemia; E87.6 Hypokalemia; E83.42 Hypomagnesemia; L03.31A Cellulitis of flank; R60.0 Localized edema; R09.02 Hypoxemia; D72.828 Other elevated white blood cell count; J90 Pleural effusion, not elsewhere classified; Z29.89 Encounter for other specified prophylactic measures; D64.89 Other specified anemias; Z95.2 Presence of prosthetic heart valve; T81.43XA Infection following a procedure, organ and space surgical site, initial encounter; Z79.01 Long term (current) use of anticoagulants

== ENCOUNTER 2025-03-21 10:20 | Inpatient (IN) ==
[2025-03-21] MEDS ORDERED: VOLTAREN 1 % GEL MULTI DOSE TUBE TOP PRN (13:54)
[2025-03-21] MEDS: PROAMATINE PO SCH (14:57)
[2025-03-21] MEDS: NEURONTIN CAP 300 MG PO SCH (14:57)
[2025-03-21] MEDS ORDERED: NovoLIN R (or HumuLIN R) SUBCUT PRN (16:04)
[2025-03-21] MEDS: ZOFRAN ODT PO PRN (18:12)
[2025-03-21] MEDS: PEPCID TAB 40 MG PO ONE (18:21)
[2025-03-21] MEDS ORDERED: SNACK - Diabetic Appropriate PO SCH (20:00)
[2025-03-21] MEDS ORDERED: PEPCID TAB 40 MG PO SCH (21:00)
[2025-03-21] MEDS: COLACE CAP 100 MG PO SCH (21:38)
[2025-03-21] MEDS: PROTONIX TAB 40 MG PO SCH (21:38)
[2025-03-21] MEDS: MIRALAX POWDER (1 DOSE 17 G) PO SCH (21:38)
[2025-03-21] MEDS: LIPITOR TAB 80 MG PO SCH (21:38)
[2025-03-21] MEDS: VIBRAMYCIN PO SCH (21:38)
[2025-03-21] MEDS: SNACK - Diabetic Appropriate PO SCH (21:39)
[2025-03-22 05:49] LABS: MEAN PLATELET VOLUME 8.5 fL (7.4-11.0); RED CELL DISTRIBUTION WIDTH 18.8 % (11.6-16.5)
[2025-03-22 05:59] LABS: COR CA(FOR HYPOALB) 10.5 mg/dL (8.5-10.1); CREATININE 1.20 mg/dL (0.70-1.30); eGFR NON BLACK RACES > 60 (>60)
[2025-03-22] MEDS ORDERED: CONSULT PHARMACY - POTASSIUM & MAGNESIUM XX SCH (07:00)
--- NOTE | 2025-03-22 07:40 | RAD ---
EXAM: CHEST, 1 VIEW HISTORY: WEAKNESS, DIZZINESS; CAD, CHF, OK, HTN, COPD, DM, PE, DVT SX: ANGIO/STENTS, CABG/VALVE SURG, ANIA, ORTHO COMPARISON: No relevant prior studies were available for comparison at the time of interpretation. TECHNIQUE: CHEST, 1 VIEW FINDINGS: Chest: Lines and tubes: Left upper extremity PICC is in satisfactory position Mediastinum: Cardiac and mediastinal shadow is within normal limits for size and contour. Pulmonary vessels: No pulmonary vascular congestion. Lung durbin: No suspicious airspace opacity. Pleura: No effusion. No pneumothorax. Bones and soft tissues: No acute osseous or soft tissue abnormality. There is a right shoulder prosthesis IMPRESSION: 1. No acute cardiopulmonary abnormality THIS IS AN ELECTRONICALLY VERIFIED FINAL REPORT 03/22/2025 7:37 AM - Electronically signed by Sascha Nielson MD
--- NOTE | 2025-03-22 08:13 | DR.UPDATE ---
H&P UPDATE Review Yes Any changes to H&P?: No Patient was examined?: Yes
[2025-03-22] MEDS ORDERED: PROTONIX TAB 40 MG PO SCH (09:00)
[2025-03-22] MEDS: FLOMAX PO SCH (09:26)
[2025-03-22] MEDS: MEGACE ORAL SUSP 400 MG/10 ML PO SCH (09:26)
[2025-03-22] MEDS: K-DUR TAB 20 MEQ PO ONE (09:27)
[2025-03-22] MEDS: PLAVIX PO SCH (09:27)
[2025-03-22] MEDS: JANUVIA PO SCH (09:27)
[2025-03-22] MEDS: TOPROL XL PO SCH (09:27)
[2025-03-22] MEDS: XARELTO PO SCH (09:27)
[2025-03-22] MEDS: PEPCID TAB 40 MG PO SCH (09:27)
[2025-03-22] MEDS: CLARITIN PO SCH (09:27)
[2025-03-22] MEDS: ALBUMIN HUMAN 25%- 100 ML 100 ML IV ONE (10:16)
--- NOTE | 2025-03-22 12:58 | PT/OTEVAL ---
PT/OT OBJECTIVES - HISTORY Prescription: OT Consult Diagnosis: ABD abscess, weakness Precautions: Weakness, Orthostatic Hypotension, Other: Per pt report, pt lives with his in a 1 story home with 4 steps, HR on B sides, and a walkway. Pt is (I) with ADLs and IADLs. Pt is driving. DME includes a RW, shower with a built in seat, and BSC. Pt was driving. No pain at eval. History of Present Illness: Pt is a 84 year old male who per documentation, is s/p R hemicolectomy at outside institution for severely perforated appendicitis that was complicated by an abscess that was apparently drained at [facility] and now presents with recurrent abscess. Pt transerred to [facility] for IR drainage. Once medically stabilized pt was trasnferred to [facility] for swing bed due to pt needing rehab. Pt had stents placed ~ 6-8 months ago after a mild heart attack. - COGNITION Mental Status: Alert Communication Status: Verbal Affect: Calm - PAIN No signs of pain Pain Scale: No Pain - BED MOBILITY Rolling: Minimal Scooting: Minimal - TRANSFERS Supine to Sit: Minimal Sit to Stand: Minimal Sit or Stand Pivot: Minimal Toileting: Moderate Safety (requires cues for:): Hand Placement Precaution - ADL'S Upper Body ADL: Minimum Lower Body ADL: Maximum Toileting: Moderate - BALANCE Static Sitting: Good Standing: Fair Dynamic Sitting: Good Standing: Poor Balance Comment: P+ - NEUROMOTOR/SENSATION Danie. Lower Ext Sensation: WFL Coordination: WFL Danie. Upper Ext Sensation: WFL Coordination: WFL - ROM Bilateral UE ROM: Impaired Comment: Both shoulder limitations - STRENGTH Bilateral LE Strength Number: 3 Other comment: 3+/5 Bilateral UE Strength Number: 3 Other comment: 3+/5, except shoulders 3-/5 - GAIT Pt. ambulates how many feet?: 10 Amount of assistance required: Minimal Type of Assistive Device: Rolling Walker - TREATMENT Date: 03/22/25 Time: 09:00 Treatment Type: Evaluation Treatment Provided: Other - TOTAL TREATMENT TIME Total Time: 45 - POST ASSESSMENT Post Assessment Comment: Pt was seen for skilled OT to assess CLOF. Pt was agreeable to participate with skilled OT and able to provide PLOF and hx. Pt given min A for bed mobility . STS with min A with RW. Pt Functionally AMB with min A and Rw wiwth min VC for hand palcement. DUring amb pt R side became weak and slipped off RW. Pt toileted with mod A. Pt washed hands standing sink side and stated he was getting weak and needed to sit. AMB to recliner and became staring off in space and not speaking, (not making out words). Check BP and o2, 100/59, 112P and 100% o2. After less than a min he came to and was bale to speak again. Nursing informed and came to assess him. Pt was up in recliner all needs met and call light within reach. Pt demonstrates deficits with ADLs and ADL functional mobility. Pt would benefit from skilled OT services to address ADL deficits to facilitate highest level of ADL function needed for safe d/c planning. - EXIT DISPOSITION Exit Position: CHAIR Call light in reach: Yes PT/OT ASSESSMENT - OT Problem List: Decreased Mobility ADL's, Decreased Safety Aware, Decreased Dressing, Decreased Bathing, Decreased UE Strength - OT GOALS Halfway Goals Days: 20 Mobility for ADL's: Pt to improve functional ADL transfers to set up A with LRAD Dressing: Pt to improve LB dressing to set up A Bathing: Pt to imrpove overall bathing to set up A Upper Ext. Strength/Use: Pt to improve MMT in BUE to 5/5 Other: Pt to improve FAT to G Short Term Goals Days: 10 Mobility for ADL's: Pt to improve functional ADL transfers to supv A with LRAD Dressing: Pt to improve LB dressing to supv A Bathing: Pt to imrpove overall bathing to supv A Upper Ext. Strength/Use: Pt to improve MMT in BUE by 1 grade Other: Pt to improve FAT to F - PATIENT GOALS Patient/Family Goals: To go home Rehabilitation Potential: G to meet stated goals Justification for Potential: To facilitate highest level of ADL function needed for safe d/c planning - PLAN Suggested Treatment Plan: Therapeutic Activity, Self Care Training, Neuro Re- education, Therapeutic Ex with HEP, Patient Education - FREQUENCY AND DURATION OT: 5x a week x 20 days Expected Continuation of Care at Discharge: Determined on Progress
[2025-03-25 05:06] LABS: MEAN PLATELET VOLUME 9.0 fL (7.4-11.0); RED CELL DISTRIBUTION WIDTH 18.8 % (11.6-16.5)
[2025-03-25 05:15] LABS: COR CA(FOR HYPOALB) 10.5 mg/dL (8.5-10.1); CREATININE 1.20 mg/dL (0.70-1.30); eGFR NON BLACK RACES > 60 (>60)
[2025-03-25] MEDS ORDERED: CONSULT PHARMACY - POTASSIUM & MAGNESIUM XX SCH (07:00)
[2025-03-25] MEDS: K-DUR TAB 20 MEQ PO SCH (08:57)
[2025-03-25] MEDS: MAG-OX TAB PO SCH (08:58)
--- NOTE | 2025-03-25 09:40 | EKG ---
Test Reason : syncope Blood Pressure : */* mmHG Vent. Rate : 98 BPM Atrial Rate : 98 BPM P-R Int : 180 ms QRS Dur : 82 ms QT Int : 392 ms P-R-T Axes : 45 -27 14 degrees QTc Int : 500 ms Sinus rhythm with occasional premature ventricular complexes and premature atrial complexes Inferior infarct , age undetermined Prolonged QT Abnormal ECG When compared with ECG of 31-JUL-2024 03:38, premature ventricular complexes are now present premature atrial complexes are now present Inferior infarct is now present T wave inversion now evident in Anterior leads QT has lengthened Confirmed by Albin Tejeda MD ([id number] on 03/25/2025 11:27:35 AM Referred By: Confirmed By: Albin Tejeda MD
--- NOTE | 2025-03-25 11:14 | CT ---
EXAMINATION: BRAIN W/O CON HISTORY: EPISODE OF APHASIA; . COMPARISON STUDY: None. TECHNIQUE: Images were obtained in brain and bone windows. The above CT scan was done with automated exposure control and the mA and kV was adjusted to obtain quality images according to patient size. FINDINGS: There is no acute intracranial hemorrhage, midline shift or edema present. There is atrophy and deep white matter ischemic change due to small vessel disease. Nash-white matter differentiation is maintained throughout. There are no intra-axial or extra-axial collections noted. . The sinuses are clear. The mastoid air cells are clear. There is no radiographic evidence of depressed skull fracture. Vascular calcification about the skull base.. IMPRESSION: No acute intracranial process. Atrophy and deep white matter ischemic change due to small vessel disease. If symptoms persist consider MRI for further assessment. THIS IS AN ELECTRONICALLY VERIFIED FINAL REPORT 03/25/2025 11:11 AM - Electronically signed by Marcelo Lilly MD
[2025-03-25] MEDS: ZOFRAN ODT PO SCH (12:25)
--- NOTE | 2025-03-25 14:09 | SP.EVAL ---
SPEECH EVALUATION - History Prescription: ST Consult Diagnosis: Abdominal absess, Hx of CAD Precautions: mechanical soft diet, fall risk PMH: PMH includes but is not limited to: CAD, SOB, DM, syncope, HLD, hematuria, kidney stones Prior Level of Function: Independent - Objective Prior level of function: Independent Level of Function Comment: Patient was previously consuming a regular diet without difficulty. - Cognition Mental Status: Alert, Oriented, Name, Date, Place Ability to Follow Directions: 1 Step - Communication Status Communication Status: Verbal Automatized Sequences: Within Functional Limit Sentence Completion: Within Functional Limit Produces Sentences: Within Functional Limit - Verbal Expression Names Objects: WFL Names Pictures: WFL Names Body Parts: WFL - Oral/Motor Examination Teeth: False Teeth Condition: Patient wears upper & lower dentures; however, ill-fitting due to recent weight loss Swallowing: Extra Effort to Chew Swallowing: Decreased intake, prolonged mastication without dentures (ill- fitting), desire for diet upgrade Diet Tolerated: Well Comments: Current diet: mechanical soft/chopped meats; PLOF regular consistency - Assessment Goals discussed with family?: Yes (Spouse and daughter present during eval) - Rehabilitation Rehabilitation Potential: Good Justification for potential: Excellent family support Weakness and Barriers: None Comments: Episodes of orthostatic BP c slurred speech/word finding def during episode - Suggested Treatment Plan Suggested Treatment: Swallow/Oral Function Th. - Discharge Plan Expected Discharge Disposition: Home (ST tx recommended 2-4 times per week for tx of oral dysphagia )
[2025-03-25] MEDS: MAG-OX TAB PO ONE ×2 (20:13→21:16)
[2025-03-25] MEDS: K-DUR TAB 20 MEQ PO ONE (20:13)
[2025-03-25] MEDS: ALBUMIN HUMAN 25%- 100 ML 100 ML IV SCH (20:24)
[2025-03-25] MEDS: ELDERTONIC + WINE PO SCH (20:29)
[2025-03-26 05:05] LABS: MEAN PLATELET VOLUME 8.8 fL (7.4-11.0); RED CELL DISTRIBUTION WIDTH 18.8 % (11.6-16.5)
[2025-03-26 05:20] LABS: COR CA(FOR HYPOALB) 10.0 mg/dL (8.5-10.1); CREATININE 1.29 mg/dL (0.70-1.30); eGFR NON BLACK RACES 56 (>60)
[2025-03-26] MEDS ORDERED: CONSULT PHARMACY - POTASSIUM & MAGNESIUM XX SCH (06:00)
[2025-03-26] MEDS: MAG-OX TAB PO SCH (09:54)
[2025-03-26] MEDS: K-DUR TAB 20 MEQ PO SCH (09:55)
--- NOTE | 2025-03-26 13:58 | RAD ---
EXAM: CHEST, PA/LAT ADULT HISTORY: SOB, HX CHF; COMPARISON: No relevant prior studies were available for comparison at the time of interpretation. TECHNIQUE: CHEST, PA/LAT ADULT FINDINGS: Chest: Lines and tubes: None Mediastinum: Cardiac and mediastinal shadow is within normal limits for size and contour. Pulmonary vessels: No pulmonary vascular congestion. Lung durbin: No suspicious airspace opacity. Pleura: No effusion. No pneumothorax. Bones and soft tissues: No acute osseous or soft tissue abnormality. IMPRESSION: 1. No acute cardiopulmonary abnormality THIS IS AN ELECTRONICALLY VERIFIED FINAL REPORT 03/26/2025 1:55 PM - Electronically signed by Sascha Nielson MD
[2025-03-27 05:00] LABS: MEAN PLATELET VOLUME 8.5 fL (7.4-11.0); RED CELL DISTRIBUTION WIDTH 19.1 % (11.6-16.5)
[2025-03-27 05:10] LABS: COR CA(FOR HYPOALB) 10.1 mg/dL (8.5-10.1); CREATININE 1.21 mg/dL (0.70-1.30); eGFR NON BLACK RACES > 60 (>60)
[2025-03-27] MEDS ORDERED: CONSULT PHARMACY - POTASSIUM & MAGNESIUM XX SCH (06:00)
[2025-03-27 08:57] LABS: RETICULOCYTE % 2.99 % (0.8-2.2)
[2025-03-27] MEDS: LASIX PO SCH (10:20)
[2025-03-27] MEDS: K-DUR TAB 20 MEQ PO SCH (10:20)
[2025-03-27] MEDS: MAG-OX TAB PO SCH (10:37)
[2025-03-27] MEDS: KLOR-CON 10 MEQ TAB PO SCH (10:48)
--- NOTE | 2025-03-28 07:06 | RAD ---
EXAM: CHEST, PA/LAT ADULT HISTORY: CHF, SOB; COPD, GERD, DM, PE DVT SX: ANGIO/STENTS, CABG/VALVE SURG, ANIA, ORTHO COMPARISON: 03/26/2025 TECHNIQUE: AP br.br.br.br silhouette. Aortic root/valve prosthesis in place. No focal consolidation, large pleural effusion, or visible pneumothorax. IMPRESSION: No acute cardiopulmonary findings. THIS IS AN ELECTRONICALLY VERIFIED FINAL REPORT 03/28/2025 7:03 AM - Electronically signed by Marlon Go MD
[2025-03-28] MEDS: NS 100 ML IV 100 ML with VENOFER 400 MG IV NR (10:00)
[2025-03-28] MEDS: ZOFRAN ODT PO SCH (12:20)
[2025-03-29 06:26] LABS: MEAN PLATELET VOLUME 8.3 fL (7.4-11.0); RED CELL DISTRIBUTION WIDTH 19.3 % (11.6-16.5)
[2025-03-29 06:32] LABS: COR CA(FOR HYPOALB) 10.4 mg/dL (8.5-10.1); CREATININE 1.29 mg/dL (0.70-1.30); eGFR NON BLACK RACES 56 (>60)
[2025-03-30] MEDS: NORCO 5/325 MG TAB PO PRN (08:51)
[2025-03-30] MEDS: ZOFRAN INJ 4 MG VIAL IVP PRN (09:00)
[2025-04-01 05:42] LABS: MEAN PLATELET VOLUME 8.0 fL (7.4-11.0); RED CELL DISTRIBUTION WIDTH 20.2 % (11.6-16.5)
[2025-04-01 05:53] LABS: CREATININE 1.36 mg/dL (0.70-1.30); eGFR NON BLACK RACES 53 (>60)
[2025-04-01 05:59] LABS: PLATELET MORPHOLOGY COMMENT NORMAL (NORMAL)
[2025-04-01] MEDS ORDERED: CONSULT PHARMACY - POTASSIUM & MAGNESIUM XX SCH (07:00)
[2025-04-01] MEDS: DRUG FILTER EXTENSION SET ONE (08:12)
[2025-04-01] MEDS: PEPCID TAB 20 MG PO SCH (08:17)
[2025-04-01] MEDS: MAG-OX TAB PO SCH ×2 (08:17→20:22)
[2025-04-01] MEDS: PREDNISONE TAB 20 MG PO SCH (09:05)
[2025-04-02 12:30] VITALS: BMI 28.5
[2025-04-03 09:07] LABS: MEAN PLATELET VOLUME 7.9 fL (7.4-11.0); RED CELL DISTRIBUTION WIDTH 21.1 % (11.6-16.5)
[2025-04-03 09:16] LABS: COR NA(FOR HYPERGLY) 140 mmol/L (136-145); CREATININE 1.58 mg/dL (0.70-1.30); eGFR NON BLACK RACES 44 (>60)
[2025-04-03 09:31] LABS: PLATELET MORPHOLOGY COMMENT NORMAL (NORMAL)
[2025-04-03] MEDS: BUTT CREAM (COMPOUND) ONE (12:41)
--- NOTE | 2025-04-03 12:52 | PCM.PROG ---
Progress Note Progress Note for Day of Date of Exam: 04/03/25 Subjective Subjective: PT IS 84 WM, CURRENTLY ON SWING BED STATUS FOR PHYSICAL THERAPY. PT HAS HAD LOSS OF APPETITE SINCE INITIAL ILLNESS, RESULTING IN EXTENDED HOSPITAL STAY. PT IS ON PROTEIN REPLACEMENT WITH [employer] AND HE IS WORKING BETTER WITH PHYSICAL THERAPY. PT DENIES CP OR SOB Past Medical Family Social History Allergies: Allergies No Known Drug Allergies Allergy (Unknown, Verified 07/30/24 12:27) Onset Date: 12/13/2012 Vital Signs and I&O's Vital Signs: Vital Signs Temperature 97.9 F Pulse Rate [Radial] 79 Respiratory Rate 19 Blood Pressure [Right Arm] 110/56 O2 Sat by Pulse Oximetry 97 Intake and Output: Intake & Output 04/01/25 04/02/25 04/03/25 04/04/25 11:59 11:59 11:59 11:59 Intake Total 500 / 500 210 / 210 Output Total 525 / 525 0 / 0 Balance - 210 / 210 Physical Exam Oriented: Normal Eyes: Normal Nose: Normal Throat: Dry Respiratory: Diminished Cardiovascular: Normal Auscultation: Bowel Sounds: Normal Palpation: Normal Tenderness: Normal Skin: Red Musculoskeletal: Motor Deficit and Instability Mood Description: Depressed Speech Pattern: Clear and Appropriate Laboratory and Diagnostics 04/03/25 08:45 04/03/25 08:45 Labs: Laboratory WBC 10.5 X10^3/uL (3.6-10.0) H 04/03/25 08:45 RBC 3.66 X10^6/uL (4.7-6.0) L 04/03/25 08:45 Hgb 11.4 g/dL (13.5-18.0) L 04/03/25 08:45 Hct 33.8 % (42.0-54.0) L 04/03/25 08:45 MCV 92.4 fL (80.0-100.0) 04/03/25 08:45 MCH 31.1 pg (27.0-34.0) 04/03/25 08:45 MCHC 33.7 g/dL (33.0-35.0) 04/03/25 08:45 RDW 21.1 % (11.6-16.5) H 04/03/25 08:45 Plt Count 267 X10^3/uL (150.0-450.0) 04/03/25 08:45 Plt Count Comment Adequate (ADEQUATE) 04/03/25 08:45 MPV 7.9 fL (7.4-11.0) 04/03/25 08:45 Neut % (Auto) 58.0 % (42.0-75.0) 04/03/25 08:45 Lymph % (Auto) 32.4 % (21.0-51.0) 04/03/25 08:45 [place] % (Auto) 8.8 % (0.0-13.0) 04/03/25 08:45 Eos % (Auto) 0.4 % (0.9-2.9) L 04/03/25 08:45 Baso % (Auto) 0.4 % (0.2-1.0) 04/03/25 08:45 Neut # (Auto) 6.1 x10^3/uL (2.2-4.8) H 04/03/25 08:45 Lymph # (Auto) 3.4 X10^3/uL (1.3-2.9) H 04/03/25 08:45 [place] # (Auto) 0.9 x10^3/uL (0.3-0.8) H 04/03/25 08:45 Eos # (Auto) 0.0 x10^3/uL (0.0-0.2) 04/03/25 08:45 Baso # (Auto) 0.0 X10^3/uL (0.0-0.1) 04/03/25 08:45 Absolute Nucleated RBC 0.0 /100WBC 04/03/25 08:45 Plt Morphology Comment Normal (NORMAL) 04/03/25 08:45 RBC Morphology Abnormal (NORMAL) 04/03/25 08:45 Anisocytosis 1+ A 04/03/25 08:45 Absolute Retic 0.0848 10^6/uL 03/27/25 04:30 Percent Retic 2.99 % (0.8-2.2) H 03/27/25 04:30 Sodium 140 mmol/L (136-145) 04/03/25 08:45 Corrected Sodium 140 mmol/L (136-145) 04/03/25 08:45 Potassium 3.8 mmol/L (3.5-5.1) 04/03/25 08:45 Chloride 104 mmol/L (98-107) 04/03/25 08:45 Carbon Dioxide 27.5 mmol/L (21-32) 04/03/25 08:45 BUN 15 mg/dL (7-18) 04/03/25 08:45 Creatinine 1.58 mg/dL (0.70-1.30) H 04/03/25 08:45 Est GFR (MDRD) Af Amer 54 (>60) L 04/03/25 08:45 Est GFR (MDRD) Non-Af 44 (>60) L 04/03/25 08:45 Glucose 115 mg/dL (65-99) H 04/03/25 08:45 POC Glucose (mg/dL) 111 mg/dL (65-99) H 04/03/25 11:03 Calcium 9.5 mg/dL (8.5-10.1) 04/03/25 08:45 Corrected Calcium TNP 04/03/25 08:45 Magnesium 2.0 mg/dL (2.0-2.9) 04/03/25 08:45 Iron 32 ug/dL (50-175) L 03/27/25 04:30 TIBC 73 ug/dL (250-450) L 03/27/25 04:30 Transferrin 64 mg/dL (202-364) L 03/27/25 04:30 Ferritin 159 ng/mL (26-388) 03/27/25 04:30 Total Bilirubin 0.60 mg/dL (0.2-1.0) 04/03/25 08:45 AST 43 Units/L (15-37) H 04/03/25 08:45 ALT 34 Units/L (12-78) 04/03/25 08:45 Alkaline Phosphatase 90 Units/L (46-116) 04/03/25 08:45 Creatine Kinase 23 Units/L (39-308) L 03/25/25 11:10 Troponin I High Sens 24.4 ng/L (4.0-60.0) 03/25/25 22:00 Total Protein 6.2 g/dL (6.4-8.2) L 04/03/25 08:45 Albumin 3.5 g/dL (3.4-5.0) 04/03/25 08:45 Globulin 2.7 g/dL (2.5-4.5) 04/03/25 08:45 Albumin/Globulin Ratio 1.3 Ratio (1.1-2.1) 04/03/25 08:45 Vitamin B12 412 pg/mL (193-986) 03/27/25 04:30 Methylmalonic Acid 136 nmol/L (85-423) 03/27/25 04:30 Folate 3.5 ng/mL (>8.6) L 03/27/25 04:30 Intrins Factor Block Ab Negative (Negative) 03/27/25 04:30 Plan (1) Muscle weakness: Status: Acute Plan: CONTINUE PT OT AND CURRENT MEDICATION
[2025-04-05 08:00] VITALS: BP 95/55; PULSE 86; RESP 18; TEMP 98.4; O2SAT 98
== END 2025-04-05 10:10 | disposition home health service (06) | DRG 372 ==
LOC: MED/SURG 13:35 → ICU 03-25 10:21 → MED/SURG 03-27 17:06
PROVIDERS: ADMIT Internal Medicine; ATTEND Internal Medicine
DX: Z96.659 Presence of unspecified artificial knee joint; R26.2 Difficulty in walking, not elsewhere classified; I95.1 Orthostatic hypotension; I25.2 Old myocardial infarction; N40.0 Benign prostatic hyperplasia without lower urinary tract symptoms; R13.11 Dysphagia, oral phase; E11.9 Type 2 diabetes mellitus without complications; T81.43XA Infection following a procedure, organ and space surgical site, initial encounter; E87.8 Other disorders of electrolyte and fluid balance, not elsewhere classified; Z98.890 Other specified postprocedural states; Z51.89 Encounter for other specified aftercare; Z96.41 Presence of insulin pump (external) (internal); Z86.718 Personal history of other venous thrombosis and embolism; Z29.89 Encounter for other specified prophylactic measures; R62.7 Adult failure to thrive; R41.82 Altered mental status, unspecified; K65.1 Peritoneal abscess; Z79.01 Long term (current) use of anticoagulants; Z98.0 Intestinal bypass and anastomosis status